=== PATIENT | female | born 1965 | race Caucasian/White ===

== ENCOUNTER → 2017-12-12 | Outpatient (CLI) | payer OTHER ==
--- NOTE | 2017-12-12 12:42 | DIAGNOSTIC IMAGING REPORT ---
L HAND MIN 3 VIEWS ROUTINE CLINICAL HISTORY: Left hand pain COMPARISON: None. DISCUSSION: No acute fractures or dislocations are visualized. There are mild osteoarthritic changes present at the level of the first carpometacarpal joint and navicular trapezium articulation. There is pronounced soft tissue swelling involving the proximal to mid aspect of the index finger. IMPRESSION: 1. Unexplained pronounced soft tissue swelling involving the index finger 2. Mild osteoarthritic change. No evidence of erosive disease Electronically signed by: Sandip Matthews M.D. 12/12/2017 12:41 PM Dictated Date/Time: 12/12/2017 12:40 PM
== END | disposition home or self-care (01) ==
LOC: C.RADBC 12:01
PROVIDERS: ATTEND Family Medicine
DX: M25.542 Pain in joints of left hand (principal)

== ENCOUNTER → 2018-01-24 | Outpatient (CLI) | payer OTHER ==
[~2018-01-24] MED LIST: DICL1GEL12 TD; FENO48TA9 PO; GABA-113 PO; LEVO100T PO; LISI20TA3 PO; LPT/40 PO; METO50TA16 PO; PRED20TA PO; TRAM-10 PO
--- NOTE | 2018-01-24 12:54 | DIAGNOSTIC IMAGING REPORT ---
RENAL ULTRASOUND CLINICAL HISTORY: ABNORMAL KIDNEY FUNCTION STUDIES COMPARISON STUDY: None. TECHNIQUE: Sonography of the kidneys and the urinary bladder was performed. FINDINGS: The right kidney measures 9.9 x 3.9 x 4.5 cm and the left kidney measures 10.3 x 5.9 x 4.7 cm. There is no hydronephrosis. No calculi or masses are identified by sonography. Renal echogenicity, size and cortical thickness are within normal limits. Bladder is suboptimally assessed given underdistention. The left ureteral jet was not identified. IMPRESSION: No hydronephrosis. No significant sonographic abnormality of the kidneys. Electronically signed by: Scott Teague M.D. 01/24/2018 12:53 PM Dictated Date/Time: 01/24/2018 12:52 PM
== END | disposition home or self-care (01) ==
LOC: C.ULTR 12:06
PROVIDERS: ATTEND Family Medicine
DX: R94.4 Abnormal results of kidney function studies (principal)

== ENCOUNTER 2018-01-25 16:14 | Emergency (ER) | payer OTHER ==
[~2018-01-25] VITALS: Ht 167.6 cm; Wt 78.7 kg
[2018-01-25 16:31] VITALS: TEMP 36.8; Ht 167.6 cm; Wt 78.7 kg
[2018-01-25] MEDS ORDERED: KETOROLAC TROMETHAMINE 30 MG/ML VIAL IV STA (16:42)
[2018-01-25] MEDS ORDERED: SODIUM CHLORIDE 0.9% 1000ML 1,000 ML IV STA (16:42)
[2018-01-25] MEDS ORDERED: DEXAMETHASONE **PF** INJ 10 MG/ML VIAL IV ONE (16:45)
--- NOTE | 2018-01-25 16:46 | EMERGENCY ROOM VISIT NOTE ---
History Report prepared by Cyril: Ana Delgado Under the Supervision of: Dr. Justin Jung M.D. First contact with patient: 16:34 Chief Complaint: HAND PAIN/INJURY Stated Complaint: SWOLLEN LEFT HAND History of Present Illness The patient is a 52 year old female who presents to the Emergency Room with complaints of constant left hand pain beginning 3 days ago. The patient states that her left index finger has been swollen for the last 4 months. She states that she had X-rays done but nothing was found. The patient states that she had pain at her joint but denies any trauma to her hand. She reports that her entire left hand has been swollen starting 3 days ago. The patient reports having fasciitis in her feet and states that her feet and ankles have been swollen for a few years. 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 The patient reports that she thinks she may have neuropathy. The patient denies having fevers, chills, cough, headaches, and diarrhea. Source of History: patient Onset: 3 days ago Position: hand (left) Quality: other (swollen ) Timing: constant Associated Symptoms: No fevers, No chills, No headache, No cough, No diarrhea Review of Systems See HPI for pertinent positives and negatives. A total of ten systems were reviewed and were otherwise negative. Past Medical & Surgical Medical Problems: (1) Fasciitis Family History No pertinent family history Social History Smoking Status: Current Every Day Smoker Marital Status: Current/Historical Medications Scheduled Atorvastatin (Lipitor), 40 MG PO DAILY Diclofenac Sodium (Topical) (Voltaren 1% Top Gel), 2-4 GM TD QID Fenofibrate (Tricor), 48 MG PO DAILY Gabapentin (Neurontin), 300 MG PO BID Levothyroxine Sodium (Synthroid), 100 MCG PO DAILY Lisinopril (Prinivil), 20 MG PO DAILY Metoprolol Tartrate (Lopressor) (Lopressor), 25 MG PO BID Prednisone (Prednisone), 3 TAB PO DAILY Scheduled PRN Tramadol (Ultram), 50 MG PO Q12 PRN for Pain Allergies Coded Allergies: No Known Allergies (Unverified , 01/25/18) Physical Exam Vital Signs Date Time Temp Pulse Resp B/P (MAP) Pulse Ox O2 Delivery O2 Flow Rate FiO2 01/25/18 18:30 67 20 177/113 98 01/25/18 16:31 36.8 88 18 186/95 96 Room Air Physical Exam GENERAL: Awake, alert, well-appearing, in no distress HENT: Normocephalic, atraumatic. Oropharynx unremarkable. EYES: Normal conjunctiva. Sclera non-icteric. NECK: Supple. No nuchal rigidity. FROM. No JVD. RESPIRATORY: Clear to auscultation. CARDIAC: Regular rate, normal rhythm. Extremities warm and well perfused. Pulses equal. ABDOMEN: Soft, non-distended. No tenderness to palpation. No rebound or guarding. No masses. RECTAL: Deferred. MUSCULOSKELETAL: Chest examination reveals no tenderness. The back is symmetrical on inspection without obvious abnormality. There is no CVA tenderness to palpation. No joint edema. UPPER EXTREMITIES: Moderate swelling to the left hand with increased swelling of the second phalanx. Mild warmth and scant erythema. Pain with passive range of motion. Perfusion motor sensory intact. Right hand has scant swelling. No erythema or warmth. LOWER EXTREMITIES: Calves are equal size bilaterally and non-tender. No edema. No discoloration. Mild bilateral plantar swelling and tenderness with scant erythema of the bilateral feet. NEURO: Normal sensorium. No sensory or motor deficits noted. SKIN: No rash or jaundice noted. Medical Decision & Procedures ER Provider Diagnostic Interpretation: Radiology results as stated below per my review and radiologist interpretation: LEFT HAND 3 VIEWS CLINICAL HISTORY: Left hand pain and swelling. FINDINGS: 3 views of the left hand are compared to study dated 12/12/2017. The skeletal structures are well mineralized. No fracture is identified. No bony erosion or periostitis is seen. Minimal arthritic change is seen at the first carpometacarpal joint. The joint spaces of the hand are otherwise preserved. Dorsal soft tissue edema is noted. Soft tissue edema is also noted in fingers, most pronounced in the second digit. No radiodense foreign body is identified. IMPRESSION: Soft tissue edema with no acute bony abnormality identified. Soft tissue edema has increased from 12/12/2017. Electronically signed by: Jaya Holden M.D. 01/25/2018 5:22 PM Dictated Date/Time: 01/25/2018 5:20 PM Laboratory Results 01/25/18 17:00 Red Blood Count 3.67, Mean Corpuscular Volume 92.9, Mean Corpuscular Hemoglobin 32.4, Mean Corpuscular Hemoglobin Concent 34.9, Mean Platelet Volume 9.4, Neutrophils (%) (Auto) 75.0, Lymphocytes (%) (Auto) 16.2, Monocytes (%) (Auto) 6.8, Eosinophils (%) (Auto) 1.3, Basophils (%) (Auto) 0.4, Neutrophils # (Auto) 6.92, Lymphocytes # (Auto) 1.50, Monocytes # (Auto) 0.63, Eosinophils # (Auto) 0.12, Basophils # (Auto) 0.04 01/25/18 17:00 Test 01/25/18 17:00 01/25/18 18:15 White Blood Count 9.24 K/uL (4.8-10.8) Red Blood Count 3.67 M/uL (4.2-5.4) Hemoglobin 11.9 g/dL (12.0-16.0) Hematocrit 34.1 % (37-47) Mean Corpuscular Volume 92.9 fL (80-100) Mean Corpuscular Hemoglobin 32.4 pg (25-34) Mean Corpuscular Hemoglobin Concent 34.9 g/dl (32-36) Platelet Count 216 K/uL (130-400) Mean Platelet Volume 9.4 fL (7.4-10.4) Neutrophils (%) (Auto) 75.0 % Lymphocytes (%) (Auto) 16.2 % Monocytes (%) (Auto) 6.8 % Eosinophils (%) (Auto) 1.3 % Basophils (%) (Auto) 0.4 % Neutrophils # (Auto) 6.92 K/uL (1.4-6.5) Lymphocytes # (Auto) 1.50 K/uL (1.2-3.4) Monocytes # (Auto) 0.63 K/uL (0.11-0.59) Eosinophils # (Auto) 0.12 K/uL (0-0.5) Basophils # (Auto) 0.04 K/uL (0-0.2) RDW Standard Deviation 44.0 fL (36.4-46.3) RDW Coefficient of Variation 13.1 % (11.5-14.5) Immature Granulocyte % (Auto) 0.3 % Immature Granulocyte # (Auto) 0.03 K/uL (0.00-0.02) Erythrocyte Sedimentation Rate 36 mm/hr (0-21) Prothrombin Time 10.4 SECONDS (9.0-12.0) Prothromb Time International Ratio 1.0 (0.9-1.1) Anion Gap 8.0 mmol/L (3-11) Est Creatinine Clear Calc Drug Dose 51.6 ml/min Estimated GFR () 52.9 Estimated GFR (Non- 45.6 BUN/Creatinine Ratio 16.3 (10-20) Calcium Level 8.9 mg/dl (8.5-10.1) Total Bilirubin 0.4 mg/dl (0.2-1) Direct Bilirubin 0.1 mg/dl (0-0.2) Aspartate Amino Transf (AST/SGOT) 34 U/L (15-37) Alanine Aminotransferase (ALT/SGPT) 29 U/L (12-78) Alkaline Phosphatase 110 U/L (45-117) Total Creatine Kinase 102 U/L (26-192) C-Reactive Protein 5.27 mg/dl (0-0.29) Total Protein 8.5 gm/dl (6.4-8.2) Albumin 4.1 gm/dl (3.4-5.0) Lipase 200 U/L (73-393) Urine Color YELLOW Urine Appearance CLEAR (CLEAR) Urine pH 5.0 (4.5-7.5) Urine Specific Rembrandt 1.028 (1.000-1.030) Urine Protein NEG (NEG) Urine Glucose (UA) NEG (NEG) Urine Ketones NEG (NEG) Urine Occult Blood NEG (NEG) Urine Nitrite NEG (NEG) Urine Bilirubin NEG (NEG) Urine Urobilinogen NEG (NEG) Urine Leukocyte Esterase NEG (NEG) Laboratory results reviewed by me Medications Administered Medications (Trade) Dose Ordered Sig/Olivia Route Start Time Stop Time Status Last Admin Dose Admin Sodium Chloride 1,000 ml @ 999 mls/hr Q1H1M STAT IV 01/25/18 16:42 01/25/18 17:42 DC 01/25/18 17:10 999 MLS/HR Ketorolac Tromethamine (Toradol Inj) 15 mg NOW STAT IV 01/25/18 16:42 01/25/18 16:48 DC 01/25/18 17:11 15 MG Dexamethasone Sodium Phosphate (Dexamethasone Inj Pf) 10 mg NOW ONCE IV 01/25/18 16:45 01/25/18 16:48 DC 01/25/18 17:11 10 MG Potassium Chloride (Klor-Con M10) 40 meq NOW STAT PO 01/25/18 17:59 01/25/18 18:00 DC 01/25/18 18:17 40 MEQ ED Course 1636: The patient was evaluated in room C1B. A complete history and physical exam was performed. 1730: I reevaluated the patient and she is doing well. Discussed results and discharge instructions: She verbalized understanding and agreement. The patient is ready for discharge. Medical Decision I reviewed the patient's past medical history, medications, and the nursing notes as described above. The patient's presentation and history were concerning for inflammatory arthritis, osteoarthritis, psoriatic arthritis, fracture, and soft tissue injury. The patient is a 52-year-old woman with a past medical history of chronic plantar fasciitis followed by podiatry who presents emergency department with left hand swelling over the past several days which occurs in the setting of left second phalanx swelling that has been ongoing for several months with rheumatology referral pending per hpi. Of note, patient denies any infectious symptoms such as fevers chills cough congestion, nausea vomiting. Rather the patient is relatively well-appearing no acute distress, afebrile stable vital signs. Left hand has moderate edema that is increased along the second phalanx. She has pain with passive range of motion. There is mild erythema/ flushing with mild warmth over the hand. Distal PMS intact. No, the patient does have scant swelling to the right hand as well addition to bilateral plantar swelling. WBC wnl. ESR 35, CRP 5. Mild renal insufficiency, which the patient reports is being evaluated by her doctor. Of note, this is why she was taken off of Meloxicam. Plain films demonstrate soft tissue swelling but otherwise no osseous involvement. Given the fact that the patient swelling has been ongoing for the past several months in the setting of being afebrile without any other infectious symptoms this is unlikely to be infectious. Moreover given her long-standing symptoms of feet swelling and plantar fasciitis as well, this raises suspicion for rheumatologic process. Will treat with steroid course, compression and elevation. Patient's PCP through [facility] has already put in a request for a rheumatology follow-up and she is waiting for callback. Patient instructed to call the rheumatology office tomorrow if she does not hear from them, to attempt to arrange an appointment as soon as possible. Findings and plan for follow-up reviewed with patient. Patient agreeable and d/c'd per discharge instructions. Medication Reconcilliation Current Medication List: was personally reviewed by me Blood Pressure Screening Patient's blood pressure: Elevated blood pressure Blood pressure disposition: Elevated BP felt to be situational Impression Primary Impression: Dactylitis Scribe Attestation The scribe's documentation has been prepared under my direction and personally reviewed by me in its entirety. I confirm that the note above accurately reflects all work, treatment, procedures, and medical decision making performed by me. Departure Information Dispostion Home / Self-Care Prescriptions Prednisone (Prednisone) 20 Mg Tab 3 TAB PO DAILY for 4 Days, #12 TAB FOR 4 DAYS Prov: Justin Jung M.D. 01/25/18 Referrals Nola Henriquez D.O. (PCP) Forms HOME CARE DOCUMENTATION FORM, IMPORTANT VISIT INFORMATION Patient Instructions Arthritis, ED Arthritis Rheumatoid, [facility], Psoriatic Arthritis Additional Instructions Please follow up with rheumatology in the next week for re-evaluation. You should call your rheumatologists office to try to obtain a prompt appointment. You should also follow up with your primary doctor within a week to repeat your kidney function tests. Your symptoms are most likely due to an inflammatory process that will need further identification for the cause. You were also found to have mild dehydration. Otherwise, your exam, lab results, and xray did not show signs of an emergent condition at this time. Acetaminophen for pain as needed. Prednisone as directed. Drink plenty of fluids to ensure hydration. Return to the emergency department for worsening symptoms as described in the accompanying instructions.
[2018-01-25 17:15] LABS: BASO % 0.4 %; BASO ABS # 0.04 K/uL (0-0.2); EOS % 1.3 %; EOS ABS # 0.12 K/uL (0-0.5); HEMATOCRIT 34.1 % (37-47); HEMOGLOBIN 11.9 g/dL (12.0-16.0); IG# 0.03 K/uL (0.00-0.02); LYMPH % 16.2 %; MEAN CELL VOLUME 92.9 fL (80-100); MEAN CORPUSCULAR HEMOGLOBIN 32.4 pg (25-34); MEAN CORPUSCULAR HGB CONC 34.9 g/dl (32-36); MEAN PLATELET VOLUME 9.4 fL (7.4-10.4); MONO % 6.8 %; MONO ABS # 0.63 K/uL (0.11-0.59); NEUT ABS # 6.92 K/uL (1.4-6.5); PLATELET COUNT 216 K/uL (130-400); RED CELL DISTRIBUTION WIDTH CV 13.1 % (11.5-14.5); WHITE BLOOD COUNT 9.24 K/uL (4.8-10.8)
--- NOTE | 2018-01-25 17:23 | DIAGNOSTIC IMAGING REPORT ---
LEFT HAND 3 VIEWS CLINICAL HISTORY: Left hand pain and swelling. FINDINGS: 3 views of the left hand are compared to study dated 12/12/2017. The skeletal structures are well mineralized. No fracture is identified. No bony erosion or periostitis is seen. Minimal arthritic change is seen at the first carpometacarpal joint. The joint spaces of the hand are otherwise preserved. Dorsal soft tissue edema is noted. Soft tissue edema is also noted in fingers, most pronounced in the second digit. No radiodense foreign body is identified. IMPRESSION: Soft tissue edema with no acute bony abnormality identified. Soft tissue edema has increased from 12/12/2017. Electronically signed by: Jaya Holden M.D. 01/25/2018 5:22 PM Dictated Date/Time: 01/25/2018 5:20 PM
[2018-01-25] MEDS ORDERED: GABA-113 PO (17:35)
[2018-01-25] MEDS ORDERED: LEVO100T PO (17:35)
[2018-01-25] MEDS ORDERED: FENO48TA9 PO (17:35)
[2018-01-25] MEDS ORDERED: DICL1GEL12 TD (17:35)
[2018-01-25] MEDS ORDERED: TRAM-10 PO (17:35)
[2018-01-25] MEDS ORDERED: METO50TA16 PO (17:35)
[2018-01-25] MEDS ORDERED: LISI20TA3 PO (17:35)
[2018-01-25] MEDS ORDERED: LPT/40 PO (17:35)
[2018-01-25 17:54] LABS: ALBUMIN 4.1 gm/dl (3.4-5.0); CALCIUM 8.9 mg/dl (8.5-10.1); CREATININE 1.32 mg/dl (0.60-1.20); POTASSIUM 3.1 mmol/L (3.5-5.1)
[2018-01-25 17:58] LABS: TOTAL PROTEIN 8.5 gm/dl (6.4-8.2)
[2018-01-25] MEDS ORDERED: POTASSIUM CHLORIDE 10 MEQ TABCR PO STA (17:59)
[2018-01-25] MEDS ORDERED: PRED20TA PO (18:03)
[2018-01-25 18:30] VITALS: BP 177/113; PULSE 67; O2SAT 98
== END 2018-01-25 18:30 | disposition home or self-care (01) ==
LOC: C.EDB 16:15 → C.EDC 18:30
DX: L08.9 Local infection of the skin and subcutaneous tissue, unspecified (principal); M72.2 Plantar fascial fibromatosis; F17.200 Nicotine dependence, unspecified, uncomplicated

== ENCOUNTER → 2018-01-27 | Outpatient (CLI) | payer OTHER ==
[2018-01-27 17:11] LABS: URIC ACID 9.3 mg/dl (2.6-7.2)
== END | disposition home or self-care (01) ==
LOC: C.LAB1850 14:51
PROVIDERS: ATTEND Internal Medicine Rheumatology
DX: M19.90 Unspecified osteoarthritis, unspecified site (principal); M79.643 Pain in unspecified hand; R70.0 Elevated erythrocyte sedimentation rate; M79.646 Pain in unspecified finger(s)

== ENCOUNTER → 2018-01-27 | Outpatient (CLI) | payer OTHER | END | disposition home or self-care (01) | LOC: C.LABSPEC 15:49 | PROVIDERS: ATTEND Internal Medicine Rheumatology | DX: M19.90 Unspecified osteoarthritis, unspecified site (principal); R70.0 Elevated erythrocyte sedimentation rate; M79.646 Pain in unspecified finger(s) ==

== ENCOUNTER → 2018-02-07 | Outpatient (CLI) | payer OTHER ==
[~2018-02-07] MED LIST changes: -PRED20TA PO
[2018-02-07 14:35] LABS: BASO % 0.2 %; BASO ABS # 0.02 K/uL (0-0.2); EOS % 0.4 %; EOS ABS # 0.04 K/uL (0-0.5); HEMATOCRIT 32.9 % (37-47); HEMOGLOBIN 11.2 g/dL (12.0-16.0); IG# 0.02 K/uL (0.00-0.02); LYMPH % 7.9 %; MEAN CELL VOLUME 95.9 fL (80-100); MEAN CORPUSCULAR HEMOGLOBIN 32.7 pg (25-34); MEAN PLATELET VOLUME 9.4 fL (7.4-10.4); MONO % 8.8 %; NEUT % 82.5 %; NEUT ABS # 8.39 K/uL (1.4-6.5); PLATELET COUNT 225 K/uL (130-400); RED CELL DISTRIBUTION WIDTH CV 13.8 % (11.5-14.5); RED CELL DISTRIBUTION WIDTH SD 47.7 fL (36.4-46.3); WHITE BLOOD COUNT 10.17 K/uL (4.8-10.8)
[2018-02-07 15:08] LABS: ALBUMIN 3.7 gm/dl (3.4-5.0); ALT/SGPT 24 U/L (12-78); AST/SGOT 28 U/L (15-37); CREATININE 1.31 mg/dl (0.60-1.20)
[2018-02-07 15:10] LABS: ALKALINE PHOSPHATASE 80 U/L (45-117); TOTAL PROTEIN 7.6 gm/dl (6.4-8.2)
[2018-02-13 06:32] LABS: PARVOVIRUS IgM INDEX 0.2 (<0.9)
== END | disposition home or self-care (01) ==
LOC: C.LAB1850 12:03
PROVIDERS: ATTEND Internal Medicine Rheumatology
DX: L03.90 Cellulitis, unspecified (principal); E79.0 Hyperuricemia without signs of inflammatory arthritis and tophaceous disease

== ENCOUNTER 2024-11-30 16:02 | Observation (INO) ==
--- NOTE | 2024-11-30 17:54 | CT Scan Report ---
INDICATION: Low back pain with radiculopathy. COMPARISON: Correlation with MRI from 10/08/2024. TECHNIQUE: Axial CT images of the lumbar spine were obtained without IV contrast administration. Coronal and sagittal reformations were reviewed. FINDINGS: Lumbar vertebral body heights and alignment are maintained. No acute fracture or traumatic subluxation. Multilevel disc space narrowing and facet arthropathy most pronounced at lower lumbar levels. Multilevel degenerative changes essentially unchanged from prior MRI. Soft tissues appear unremarkable. IMPRESSION: No acute fracture. Multilevel disc space narrowing and facet arthropathy most pronounced at lower lumbar levels. Multilevel degenerative changes essentially unchanged from prior MRI. Electronically signed by Jerry Morgan 11-30-2024 5:54 PM
[2024-11-30] MEDS: oxyCODONE HCL IR 5 MG TAB (IMMEDIATE RELEASE) PO STA (18:27)
[2024-11-30] MEDS: MoRPHine SULFATE 4 MG/ML 1 ML CARP\\VIAL IV STA (20:05)
[2024-11-30] MEDS: ONDANSETRON INJ 2 MG/ML 2 ML VIAL IV STA (20:05)
--- NOTE | 2024-11-30 20:22 | Emergency Department Note ---
ED Provider Note History of Present Illness Chief Complaint: Hip Pain Stated Complaint: BACK, HIP PAIN Time Seen by Provider: 11/30/24 17:18 Source: patient and family Mode of arrival: EMS Limitations: no limitations Patient is a 58-year-old female who presents to the emergency department with complaints of severe back pain. Patient states that she has a history of back issues and has been following with her primary care physician and has an appointment with orthopedic spine at [place] in February but notes that over the last 2 days her pain has been significantly worse and is radiating down in her right hip and right leg. Patient denies any numbness or tingling and denies any loss of bladder or bowel control. Home Medications Medication Instructions Recorded Confirmed Type atorvastatin 40 mg tablet 40 mg PO QAM 07/13/19 04/25/24 History bupropion HCl 150 mg 24 hr tablet, 150 mg PO BID 07/13/19 04/25/24 History extended release (Wellbutrin XL) duloxetine 60 mg capsule,delayed 60 mg PO QAM #30 caps 07/13/19 04/25/24 History release fenofibrate nanocrystallized 48 mg 48 mg PO QAM 07/13/19 04/25/24 History tablet acetaminophen 500 mg tablet 1,000 mg PO Q6H PRN Pain 12/24/19 04/25/24 History (Tylenol Extra Strength) amlodipine 10 mg tablet 10 mg PO DAILY 06/26/22 04/25/24 History famotidine 40 mg tablet 40 mg PO DAILY 06/26/22 04/25/24 History levothyroxine 125 mcg tablet 125 mcg PO DAILY 06/26/22 04/25/24 History (Euthyrox) Allergies Allergy/AdvReac Type Severity Reaction Status Date / Time No Known Allergies Allergy Verified 06/26/22 19:32 Past Med/Surg History Problem List (Updated 11/30/24 @ 23:06 by JUANITA Brink) Acute hip pain (Acute) Intractable back pain (Acute) Charcot's joint of foot (Chronic) Chronic kidney disease (Chronic) Hypothyroidism (Chronic) High cholesterol (Chronic) High blood pressure (Chronic) Anxiety and depression (Chronic) Medical History Deep vein thrombosis, upper right extremity PICC line History of Clostridium difficile infection HX CDIFF , 1 MON AGO - RESOLVED Low blood potassium Low magnesium level Surgical History History of foot surgery LEFT History of laparoscopy Family History Other No significant family history Social History Smoking Status: Former smoker Tobacco Type: Cigarettes Cigarettes Per Day: .5 PPD / ADVISED NPO; Hx Alcohol Use: Yes Alcohol type: beer, wine and hard liquor Hx Substance Use: No Preferred Language: Kittitian Communication Ability: Effective Senior Coldfusion Developer Required: No Beliefs That Will Affect Care: None Current Living Situation: Spouse and Other Current Living Situation Comment: AND DAUGHTER Feels Safe at Home: Yes Physical Exam Vital Signs Vital Signs - 24 hr 11/30/24 16:14 11/30/24 17:08 11/30/24 18:27 Temperature 36.5 C Temperature Source Oral Pulse Rate 78 Pulse Rate [Right Finger] 75 76 Pulse Rhythm Regular Pulse Rhythm [Right Finger] Pulse Strength Normal Pulse Strength [Right Finger] Respiratory Rate 20 16 20 Respiratory Effort / Characteristics Non-Labored Spontaneous Respiratory Depth Normal Normal Respiratory Pattern Blood Pressure 186/93 H Blood Pressure [Right Arm] 195/92 H 189/99 H Blood Pressure Mean 124 Blood Pressure Mean [Right Arm] 126 129 Blood Pressure Position Sitting Blood Pressure Position [Right Arm] Pulse Oximetry 97 98 96 Oxygen Delivery Method Room Air Room Air Sepsis Recent Fever Within 48 Hours No Sepsis New/Unexplained Change in Mental Status No Sepsis Action Taken by Nursing No Action Required 11/30/24 20:06 11/30/24 21:00 Temperature Temperature Source Pulse Rate Pulse Rate [Right Finger] 83 78 Pulse Rhythm Pulse Rhythm [Right Finger] Regular Regular Pulse Strength Pulse Strength [Right Finger] Normal Normal Respiratory Rate 20 17 Respiratory Effort / Characteristics Non-Labored Spontaneous Non-Labored Spontaneous Respiratory Depth Normal Normal Respiratory Pattern Regular Regular Blood Pressure Blood Pressure [Right Arm] 165/88 H 150/96 H Blood Pressure Mean Blood Pressure Mean [Right Arm] 113 114 Blood Pressure Position Blood Pressure Position [Right Arm] Lying Lying Pulse Oximetry 96 95 Oxygen Delivery Method Room Air Room Air Sepsis Recent Fever Within 48 Hours Sepsis New/Unexplained Change in Mental Status Sepsis Action Taken by Nursing VITAL SIGNS - Vital signs and nursing notes were reviewed. GENERAL -58-year-old female appearing her stated age and in noticeable discomfort throughout the exam. Patient's daughter is at bedside. NECK - FROM of the cervical spine. ABDOMEN - Abdominal contour without pulsations or visible masses. BS normoactive all four quadrants. MUSCULOSKELETAL - ROM of the lumbar spine region was limited due to discomfort. No step-off deformities were palpated down the cervical, thoracic, or lumbar spines. Increased tenderness to Palpation experienced at the level of the lumbar spine and bilateral paraspinal muscle distribution. Reproducible tenderness to palpation across the iliac spine. Patient notes that her pain radiates down into her right hip and right leg. Denies numbness or tingling. NEUROLOGIC - REFLEXES: +3/4 patellar reflexes B/L, +3/4 Achilles reflexes B/L. SENSORY: Spinothalamic tract was found to be intact with ability to discriminate sharp versus dull sensation at the level of hip joint down do the great toe. No sensory defects of the dorsal column were appreciated utilizing light touch for evaluation. CEREBELLAR: Pt able to perform rapid alternating movements of the feet. EXTREMITIES - Range of Motion - No tremors, ticks, or fasciculations of the lower extremities noticed during inspection. Pt able to perform straight leg raises B/L with minimal increase in pain. Pt had + 4 strength appreciated in the lower extremities against examiner's resistance. Patient notes that she feels weaker in her bilateral lower extremities because of her back pain. VASCULAR - Capillary refill of the great toe was brisk. No mottling or blanching of the extremities present. +3/5 dorsalis pedis pulses palpated bilaterally. Course Administered Medications Discontinued Medications Morphine Sulfate (Morphine Sulfate 4 Mg/Ml 1 Ml Carp\Vial) 4 mg IV NOW STA Stop: 11/30/24 19:33 Last Admin: 11/30/24 20:05 Dose: 4 mg Documented By: AFTAB Ondansetron HCl (Ondansetron Inj 2 Mg/Ml 2 Ml Vial) 4 mg IV NOW STA Stop: 11/30/24 19:33 Last Admin: 11/30/24 20:05 Dose: 4 mg Documented By: AFTAB Oxycodone HCl (Oxycodone Hcl Ir 5 Mg Tab (Immediate Release)) 5 mg PO NOW STA Stop: 11/30/24 18:21 Last Admin: 11/30/24 18:27 Dose: 5 mg Documented By: [facility] Medical Decision Making Differential Diagnosis In the evaluation and treatment of this patient the following differential diagnoses were considered: Cauda equina syndrome, discitis, HNP, sciatica, epidural abscess, psoas abscess, musculoskeletal strain, lumbar fracture, lumbar dislocation, lumbar subluxation, spondylolisthesis, spondylosis, or compression fracture. Medical Records Attestation: I reviewed the patient's medical records. Home Medications was personally reviewed by or Laboratory Data Attestation: I reviewed the patient's lab results. 11/30/24 20:30 11/30/24 20:30 Lab Results 11/30/24 Range/Units 20:30 WBC 8.80 (4.8-10.8) K/ul RBC 3.72 L (4.20-5.40) M/uL Hgb 11.9 L (12.0-16.0) g/dl Hct 34.0 L (37.0-47.0) % MCV 91.4 (80.0-100.0) fL MCH 32.0 (25.0-34.0) pg MCHC 35.0 (32.0-36.0) g/dL RDW Std Deviation 43.0 (36.4-46.3) fL RDW Coeff of Mario 13.0 (11.5-14.5) % Plt Count 280 (130-400) K/uL MPV 11.0 (9.4-12.4) fL Immature Gran % (Auto) 2.0 % Neut % (Auto) 78.0 % Lymph % (Auto) 12.3 % [place] % (Auto) 7.4 % Eos % (Auto) 0.2 % Baso % (Auto) 0.1 % Neut # (Auto) 6.86 H (1.40-6.50) K/uL Lymph # (Auto) 1.08 L (1.20-3.40) K/uL [place] # (Auto) 0.65 H (0.11-0.59) K/uL Eos # (Auto) 0.02 (0.00-0.50) K/uL Baso # (Auto) 0.01 (0.00-0.20) K/uL Immature Gran # (Auto) 0.18 (0.01-0.20) K/uL Sodium 139 (136-145) mmol/L Potassium 3.3 L (3.5-5.1) mmol/L Chloride 104 (98-107) mmol/L Carbon Dioxide 22 (21-32) mmol/L Anion Gap 13 H (3-11) BUN 27 H (6-23) mg/dl Creatinine 1.52 H (0.6-1.2) mg/dl Est Cr Clr Drug Dosing 42.1 ml/min eGFR 39.02 BUN/Creatinine Ratio 17.8 (10-20) Glucose 111 H (70-99(Fasting)) mg/dl Calcium 10.2 (8.6-10.3) mg/dl Total Bilirubin 0.5 (0.2-1.0) mg/dl AST 18 (13-39) U/L ALT 13 (7-52) U/L Alkaline Phosphatase 71 (34-104) U/L Total Protein 8.6 H (6.0-8.3) gm/dl Albumin 4.6 (3.4-5.0) gm/dl Globulin 4.0 (2.5-4.0) gm/dl Albumin/Globulin Ratio 1.1 (0.9-2) Imaging Data Radiologist's Impression: Lumbar Spine CT 11/30/24 16:51 INDICATION: Low back pain with radiculopathy. COMPARISON: Correlation with MRI from 10/08/2024. TECHNIQUE: Axial CT images of the lumbar spine were obtained without IV contrast administration. Coronal and sagittal reformations were reviewed. FINDINGS: Lumbar vertebral body heights and alignment are maintained. No acute fracture or traumatic subluxation. Multilevel disc space narrowing and facet arthropathy most pronounced at lower lumbar levels. Multilevel degenerative changes essentially unchanged from prior MRI. Soft tissues appear unremarkable. IMPRESSION: No acute fracture. Multilevel disc space narrowing and facet arthropathy most pronounced at lower lumbar levels. Multilevel degenerative changes essentially unchanged from prior MRI. Electronically signed by Jerry Morgan 11-30-2024 5:54 PM [facility] Narrative Patient is a 58-year-old female who presents to the emergency department with complaints of severe back pain. Patient states that she has a history of back issues and has been following with her primary care physician and has an appointment with orthopedic spine at [place] in February but notes that over the last 2 days her pain has been significantly worse and is radiating down in her right hip and right leg. Patient denies any numbness or tingling and denies any loss of bladder or bowel control. Patient was evaluated by myself and findings were noted in physical exam above. Patient was ordered a CT of her lumbar spine through triage protocols. Patient was also ordered a dose of oxycodone and an x-ray of the right hip and pelvis. Upon reevaluation the patient states that her pain is still significant and she had no relief of pain from the oxycodone. Patient notes that she has been taking gabapentin, baclofen, and Lyrica at home with no relief of her pain. Patient was ordered saline lock, a dose of morphine and Zofran, as well as some lab work. Patient's lab work resulted with a normal white blood cell count of 8.80. Patient had some mild anemia noted that appears to be baseline for the patient. Patient had a hemoglobin of 11.9 and hematocrit of 34.0. Patient had a creatinine level of 1.52, otherwise no significant electrolyte imbalance was noted. Patient CT was interpreted by radiology to show no acute fracture. There is multilevel disc space narrowing and facet arthropathy most pronounced at the lower lumbar levels. Patient had a previous MRI done back in October and there were no significant changes from her previous MRI. Upon reevaluation the patient notes that the morphine did help with her pain some but she is still having significant amount of pain. Patient was writhing in bed and crying. Patient states that she does not feel that she can go home to take care of herself because her pain has increased so significantly over the last couple days. Patient states that she lives at home alone and is able to call her children for help but does not feel that she is appropriate to go home. I discussed this case with Dr. Chaves who was [facility] I gave her a full report on the patient's chief complaint, results of her lab work and imaging, and the patient's current status. Dr. Chaves agreed to accept the patient for admission under her service for intractable pain. Patient was admitted to the hospital in good condition. Please refer to [facility] documentation for further evaluation and management of this patient. Impression Intractable back pain, Acute hip pain Discharge Plan Visit Data Chief Complaint: Hip Pain Stated Complaint: BACK, HIP PAIN ED Provider: Jaya Lee ED Midlevel Provider: Jina Hendricks Discharge Problem: Intractable back pain, Acute hip pain Patient Disposition: Admitted As Inpatient Discharge Instructions Interventions: ED Discharge Assessment Last Done: 11/30/24 21:53 Discharge Problem: Acute hip pain Qualifiers: Laterality: right Qualified Code(s): M25.551 - Pain in right hip
[2024-11-30 21:05] LABS: Albumin Globulin Ratio 1.1 (0.9-2); Albumin Level 4.6 gm/dl (3.4-5.0); BUN Creatinine Ratio 17.8 (10-20); Bilirubin,Total 0.5 mg/dl (0.2-1.0); Calcium 10.2 mg/dl (8.6-10.3); Creatinine Clr Calc Pharmacy 42.1 ml/min; Potassium 3.3 mmol/L (3.5-5.1); Total Protein 8.6 gm/dl (6.0-8.3)
--- NOTE | 2024-11-30 21:13 | History & Physical Report ---
Date of Service November 30, 2024 Assessment & Plan (1) Acute hip pain: Plan: X-ray imaging suggestive of right hip dislocation. Patient is NV intact. No recent falls or trauma. Most likely cause of patient's severe acute pain -Check CT -Pain control -Ortho consultation (2) Intractable back pain: Plan: -Tylenol 1gm po TID scheduled -Heat -Oxycodone 5mg po q 4 hours PRN -Morphine 4mg IV q 3 hours PRN severe pain -Flexeril 5mg po TID PRN -Gabapentin 600 mg po BID -Lyrica 75mg po BID Plan Chronic Medical Issues: Hypertension -Continue Amlodipine 10mg po daily Hyperlipidemia -Continue Atorvastatin 40mg po daily -Continue Fenofibrate Anxiety -Welbutrin 150mg po BID Hypothyroidism -Continue Synthroid 137mcg po daily F/E/N - NSS at 125mL/hr, electrolytes WNL, NPO for now for possible reduction of hip dislocation Ppx - SCDs Code - Full Dispo - Admit to medical History of Present Illness Chief Complaint: back pain Primary Care Provider: Madhavi Garnett MD Miranda Patten is a 58yo female presenting with acute on chronic low back pain with right sided radicular symptoms. Patient reports she has been unable to control her pain at home and has not been able to walk. She has chronic back pain. Is being considered for surgical intervention. She recently [place] [facility] to obtain [place]). Patient has been having worsening right sided back pain for the last 2 weeks with radiation into the buttock and down posterior leg. She has not been able to ambulate at home due to discomfort. She has been taking Tylenol, Ibuprofen and Gabapentin with no relief. She has been experiencing spasms as well in her upper leg. Denies muscle weakness or numbness. No falls or trauma. No report of fever, chills, chest pain, cough, SOB, bowel or bladder issues. No additional complaints at this time. ER Course: Oxycodone Morphine Zofran Senna/Docusate Allergies Allergy/AdvReac Type Severity Reaction Status Date / Time No Known Allergies Allergy Verified 06/26/22 19:32 Home Medications Medication Instructions Recorded Confirmed Type atorvastatin 40 mg tablet 40 mg PO QAM 07/13/19 12/01/24 History bupropion HCl 150 mg 24 hr tablet, 150 mg PO BID 07/13/19 12/01/24 History extended release (Wellbutrin XL) duloxetine 60 mg capsule,delayed 60 mg PO QAM #30 caps 07/13/19 12/01/24 History release fenofibrate nanocrystallized 48 mg 48 mg PO QAM 07/13/19 12/01/24 History tablet acetaminophen 500 mg tablet 1,000 mg PO Q6H PRN Pain 12/24/19 12/01/24 History (Tylenol Extra Strength) amlodipine 10 mg tablet 10 mg PO DAILY 06/26/22 12/01/24 History famotidine 40 mg tablet 40 mg PO DAILY 06/26/22 04/25/24 History levothyroxine 125 mcg tablet 137 mcg PO DAILY 06/26/22 12/01/24 History (Euthyrox) baclofen 5 mg tablet 10 mg PO BID PRN Pain 12/01/24 12/01/24 History baclofen 5 mg tablet mg 12/01/24 History gabapentin 600 mg tablet 600 mg PO BID 12/01/24 12/01/24 History potassium chloride 20 mEq 20 meq PO DAILY 12/01/24 12/01/24 History tablet,extended release(part/cryst) pregabalin 75 mg capsule 75 mg PO BID 12/01/24 12/01/24 History upadacitinib 15 mg tablet,extended 15 mg PO 12/01/24 History release 24 hr (Rinvoq) Past Med/Surg History Problem List Acute hip pain (Acute) Intractable back pain (Acute) Charcot's joint of foot (Chronic) Chronic kidney disease (Chronic) Hypothyroidism (Chronic) High cholesterol (Chronic) High blood pressure (Chronic) Anxiety and depression (Chronic) Medical History Deep vein thrombosis, upper right extremity PICC line History of Clostridium difficile infection HX CDIFF , 1 MON AGO - RESOLVED Low blood potassium Low magnesium level Surgical History History of foot surgery LEFT History of laparoscopy Family History Other No significant family history Social History (Reviewed 12/01/24 @ 01:11 by JORGE A Hernandez Smoking Status: Former smoker Tobacco Type: Cigarettes Cigarettes Per Day: .5 PPD / ADVISED NPO; Hx Alcohol Use: Yes Alcohol type: beer, wine and hard liquor Hx Substance Use: No Preferred Language: Malagasy Communication Ability: Effective Charging Car Operator Required: No Beliefs That Will Affect Care: None Current Living Situation: Spouse and Other Current Living Situation Comment: AND DAUGHTER Feels Safe at Home: Yes Review of Systems Review of Systems: All systems reviewed & are unremarkable except as noted in HPI & below Physical Exam Physical Exam: General: patient resting comfortably, NAD, non-toxic in appearance, AA&O x 4 Skin: warm, dry, intact, no rashes or lesions HEENT: NC/AT, PERRL, EOMI, anicteric sclera, conjunctiva without injection, external ear normal to inspection and nontender, nares patent, moist mucus membranes, dentition intact, no oropharyngeal lesions, neck supple, trachea midline, no LAD, no thyromegaly, no JVD Heart: +S1/S2, regular, no m/r/g Lungs: equal air entry bilaterally, no rales/rhonchi/wheezes Abd: +BS, soft, NT/ND, no masses/organomegaly/ascites Ext: warm, 2+ pulses in UE/LE bilaterally, no clubbing/cyanosis or edema Pain in the right buttock, some paraspinal muscular tenderness, + straight leg raise Neuro: nonfocal, patient AA&O x 4, speech intact, no facial droop, moving all extremities on command with equal strength 5/5 Results & Data Results & Data Vital Signs (Past 12 Hours) Vital Signs Temp Pulse Pulse Resp BP BP Pulse Ox 11/30/24 21:00 78 17 150/96 H 95 11/30/24 20:06 83 20 165/88 H 96 11/30/24 18:27 76 20 189/99 H 96 11/30/24 17:08 75 16 195/92 H 98 11/30/24 16:14 36.5 C 78 20 186/93 H 97 O2 Del Method 11/30/24 21:00 Room Air 11/30/24 20:06 Room Air 11/30/24 18:27 11/30/24 17:08 Room Air 11/30/24 16:14 Room Air Laboratory Results Laboratory Results WBC 8.80 K/ul (4.8-10.8) 11/30/24 20: RBC 3.72 M/uL (4.20-5.40) L 11/30/24 20: Hgb 11.9 g/dl (12.0-16.0) L 11/30/24 20:30 Hct 34.0 % (37.0-47.0) L 11/30/24 20: MCV 91.4 fL (80.0-100.0) 11/30/24 20: MCH 32.0 pg (25.0-34.0) 11/30/24 20: MCHC 35.0 g/dL (32.0-36.0) 11/30/24: RDW Std Deviation 43.0 fL (36.4-46.3) 11/30/24 RDW Coeff of Mario 13.0 % (11.5-14.5) 11/30/24: Plt Count 280 K/uL (130-400) 11/30/24: MPV 11.0 fL (9.4-12.4) 11/30/24 20: Immature Gran % (Auto) 2.0 % 11/30/24 20: Neut % (Auto) 78.0 % 11/30/24 20: Lymph % (Auto) 12.3 % 11/30/24 20: [place] % (Auto) 7.4 % 11/30/24 20: Eos % (Auto) 0.2 % 11/30/24 20: Baso % (Auto) 0.1 % 11/30/24 20:30 Neut # (Auto) 6.86 K/uL (1.40-6.50) H 11/30/24 20:30 Lymph # (Auto) 1.08 K/uL (1.20-3.40) L 11/30/24 20: [place] # (Auto) 0.65 K/uL (0.11-0.59) H 11/30/24 20:30 Eos # (Auto) 0.02 K/uL (0.00-0.50) 11/30/24 20: Baso # (Auto) 0.01 K/uL (0.00-0.20) 11/30/24 20:30 Immature Gran # (Auto) 0.18 K/uL (0.01-0.20) 11/30/24 20:30 Sodium 139 mmol/L (136-145) 11/30/24 20:30 Potassium 3.3 mmol/L (3.5-5.1) L 11/30/24 20:30 Chloride 104 mmol/L (98-107) 11/30/24 20:30 Carbon Dioxide 22 mmol/L (21-32) 11/30/24 20:30 Anion Gap 13 (3-11) H 11/30/24 20:30 BUN 27 mg/dl (6-23) H 11/30/24 20:30 Creatinine 1.52 mg/dl (0.6-1.2) H 11/30/24 20:30 Est Cr Clr Drug Dosing 42.1 ml/min 11/30/24 20:30 eGFR 39.02 11/30/24 20:30 BUN/Creatinine Ratio 17.8 (10-20) 11/30/24 20:30 Glucose 111 mg/dl (70-99(Fasting)) H 11/30/24 20:30 Calcium 10.2 mg/dl (8.6-10.3) 11/30/24 20:30 Total Bilirubin 0.5 mg/dl (0.2-1.0) 11/30/24 20:30 AST 18 U/L (13-39) 11/30/24 20:30 ALT 13 U/L (7-52) 11/30/24 20:30 Alkaline Phosphatase 71 U/L (34-104) 11/30/24 20:30 Total Protein 8.6 gm/dl (6.0-8.3) H 11/30/24 20:30 Albumin 4.6 gm/dl (3.4-5.0) 11/30/24 20:30 Globulin 4.0 gm/dl (2.5-4.0) 11/30/24 20:30 Albumin/Globulin Ratio 1.1 (0.9-2) 11/30/24 20:[address] 11/30/24 16:51 INDICATION: Low back pain with radiculopathy. COMPARISON: Correlation with MRI from 10/08/2024. TECHNIQUE: Axial CT images of the lumbar spine were obtained without IV contrast administration. Coronal and sagittal reformations were reviewed. FINDINGS: Lumbar vertebral body heights and alignment are maintained. No acute fracture or traumatic subluxation. Multilevel disc space narrowing and facet arthropathy most pronounced at lower lumbar levels. Multilevel degenerative changes essentially unchanged from prior MRI. Soft tissues appear unremarkable. IMPRESSION: No acute fracture. Multilevel disc space narrowing and facet arthropathy most pronounced at lower lumbar levels. Multilevel degenerative changes essentially unchanged from prior MRI. Electronically signed by Jerry Morgan 11-30-2024 5:54 PM Hip/Pelvis X-Ray 11/30/24 20:00 Exam(s): XR HIP + PELVIS, 2-3 views EXAM: XR Right Hip With Pelvis When Performed, 2 or 3 Views CLINICAL HISTORY: Reason for exam: right hip, lower back pain. TECHNIQUE: Two or three views of the right hip with pelvis when performed. COMPARISON: No relevant prior studies available. FINDINGS: Bones/joints: The right hip appears to be dislocated. No visualized fracture. Vasculature: Phleboliths within the pelvis. IMPRESSION: The right hip appears to be dislocated. Electronically signed by: Harrison Blank MD 11/30/24 23:31 PM Code Status & VTE Plan VTE Prophylaxis Plan VTE Prophylaxis will be ordered: Yes PG Care Time/CCT Total # of Minutes Spent Total Time Spent with Patient: Total time spent is greater than 50% in coordination of care (as documented) at patient's floor/unit and/or counseling patient: Coding Level of Care Code 77227 INT INP/OBS CARE 3/75MIN Diagnoses Acute hip pain M25.551 Laterality: right Intractable back pain M54.9 (1) Acute hip pain Laterality: right Qualified Code(s): M25.551 - Pain in right hip
[2024-11-30 21:31] LABS: Basophils # (auto) 0.01 K/uL (0.00-0.20); Basophils % (auto) 0.1 %; Eosinophils # (auto) 0.02 K/uL (0.00-0.50); Eosinophils % (auto) 0.2 %; Hemoglobin 11.9 g/dl (12.0-16.0); Immature Granulocytes # (auto) 0.18 K/uL (0.01-0.20); Lymphocytes # (auto) 1.08 K/uL (1.20-3.40); Lymphocytes % (auto) 12.3 %; Mean Corpuscular Volume 91.4 fL (80.0-100.0); Monocytes # (auto) 0.65 K/uL (0.11-0.59); Monocytes % (auto) 7.4 %; Neutrophils # (auto) 6.86 K/uL (1.40-6.50); Platelet Count 280 K/uL (130-400); Red Blood Count 3.72 M/uL (4.20-5.40)
[2024-11-30] MEDS: DOCUSATE SODIUM/SENNA 50/8.6MG TAB PO SCH (22:00)
[2024-11-30] MEDS ORDERED: POLYETHYLENE (MIRALAX) 17 GM PACK PO PRN (22:35)
[2024-11-30] MEDS ORDERED: ONDANSETRON INJ 2 MG/ML 2 ML VIAL IV PRN (22:35)
--- OUTSIDE RECORDS SUMMARY | 2024-11-30 23:11 | External Medical Summary | Summary of Care ---
Author Name Unknown Organization [facility] Address [address] [place] [address] Phone [phone] Care Team Providers Care Saas Architect Name Role Phone Kelly SILVA MD, Lalo Torres Primary Care Provider [phone] Reason for Visit * Reason Onset Date Comments Imaging Records Request 11/05/2024 Encounter Details Date Type Department Care Team (Late st Contact Info) Description 11/05/2024 Telephone Radiology Film File [address] [place] [address] Support, Imaging Radiology [address] [place] [address] Imaging Records Request Allergies No known active allergiesdocumented as of this encounter (statuses as of 11/05/2024) Medications hydrochlorothiazid e (HYDRODIURIL) 25 MG TabletIndications: HTN, goal below 140/90 TAKE ONE TABLET BY MOUTH EVERY DAY 90 Tab 3 02/15/20 17 Active Additional Information Patient not taking.Reported on 07/02/2024 levothyroxine (LEVOXYL) 100 MCG TabletIndications: Hypothyroidism TAKE ONE TABLET BY MOUTH ONCE DAILY (AT LEAST 30 MINUTES PRIOR TO BREAKFAST OR OTHER MEDS) 90 Tab 1 05/24/20 17 Active Norgestrel-Ethinyl Estradiol (LOW-OGESTREL) 0.3-30 MG-MCG per Tablet Take 1 Tab by mouth daily. Active Meloxicam 15 MG Tablet Take 1 Tab by mouth daily. for pain. 90 Tab 3 07/21/20 17 Active Additional Information Patient not taking.Reported on 07/02/2024 lisinopril (PRINIVIL) 20 MG TabletIndications: HTN, goal below 140/90 Take 1 Tab by mouth daily. 90 Tab 3 07/21/20 17 Active metoprolol tartrate (LOPRESSOR) 50 MG TabletIndications: HTN, goal below 140/90 Take 0.5 Tabs by mouth 2 times a day. 90 Tab 5 07/21/20 17 Active Additional Information Patient not taking.Reported on 07/02/2024 lisinopril (PRINIVIL) 20 MG TabletIndications: Essential hypertension with goal blood pressure less than 140/90 TAKE ONE TABLET DAILY 90 Tab 3 07/26/20 17 Active lovastatin (MEVACOR) 20 MG Tablet TAKE ONE TABLET ONCE DAILY AT BEDTIME 90 Tab 1 08/01/20 17 Active Additional Information Patient not taking.Reported on 07/02/2024 atorvaSTATin (LIPITOR) 40 MG TabletIndications: Dyslipidemia, goal LDL below 160 TAKE ONE TABLET ONCE DAILY 30 Tab 5 09/08/20 17 Active ELINEST 0.3-30 MG-MCG per TabletIndications: General counseling for prescription of oral contraceptives TAKE ONE TABLET BY MOUTH ONE TIME DAILY 28 Tab 5 10/25/19 18 Active Additional Information Patient not taking.Reported on 07/02/2024 Xeljanz 5 MG Oral Tablet (Tofacitinib Citrate) Take 1 tablet by mouth 2 times a day. 60 Tablet 5 08/05/20 23 Active Additional Information Patient not taking.Reported on 07/02/2024 Xeljanz 5 MG Oral Tablet (Tofacitinib Citrate) Take 1 tablet by mouth twice daily 60 Tablet 5 02/22/2024 3:33 PM EDT 11/21/19 24 Active Additional Information Patient not taking.Reported on 07/02/2024 Rinvoq 15 MG Oral Tablet Extended Release 24 Hour (Upadacitinib ER) Take 1 tablet by mouth daily 30 Tablet 5 10/23/2024 9:18 AM EST 06/20/20 24 Active amLODIPine Besylate 10 MG Oral Tablet (Norvasc) Take 1 Tablet by mouth in the morning. Active buPROPion HCl ER (XL) 150 MG Oral Tablet Extended Release 24 Hour (Wellbutrin XL) Take 1 Tablet by mouth in the morning and 1 Tablet before bedtime. 05/08/20 24 Active DULoxetine HCl 60 MG Oral Capsule Delayed Release Particles (Cymbalta) Take 1 Capsule by mouth in the morning. 05/08/20 24 Active Famotidine 40 MG Oral Tablet (Pepcid) Take 1 Tablet by mouth in the morning. 04/19/20 24 Active Fenofibrate 48 MG Oral Tablet (Tricor) Take 1 Tablet by mouth in the morning. Active documented as of this encounter (statuses as of 11/05/2024) Active Problems Problem Noted Date Diagnosed Date Arthritis, rheumatoid 01/01/2024 Gout 01/26/2006 Hypothyroidism 12/23/2004 Encounter for other general counseling or advice on contraception 12/23/2004 Overview (07/24/2024): ICD-10 update of inactive term Varicella without complication 12/23/2004 HTN, goal below 140/90 08/18/2004 PURE HYPERCHOLESTEROLEM Overview (04/26/1999): 235 [place] 1994 Dyslipidemia, goal LDL below 130 Tobacco use disorder documented as of this encounter (statuses as of 11/05/2024) Immunizations Name Administration Dates Next Due Pneumococcal Polysaccharide PPV23 (Pneumovax) TDAP, Age 7 and older, IM (Adacel) 04/08/2010 documented as of this encounter Social History Tobacco Use Types Packs/Day Years Used Date Smoking Tobacco: Every Day Cigarettes 0.5 29 Smokeless Tobacco: Never Alcohol Use Standard Drinks/Week Comments Yes 3.3 (1 standard drin k = 0.6 oz pure alcohol) As of 2.17.2006, the last noted alcohol intake was 24 ounces. 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 Specifically requested [facility] Authorization to Release on file. Imaging pushed to [facility] external PACs connection Associated report(s) not needed. documented in this encounter Plan of Treatment Health Maintenance Due Date Last Done Comments COVID-19 Vaccine (#1) 1968 HIV Screening 1978 Albumin/Creatinine Ratio 1981 Hepatitis C Screening 1981 Zoster Vaccines (1 of 2) 1982 HPV/Co-Test 1993 Mammogram 2003 Cologuard 2008 Colonoscopy 2008 Colorectal Cancer Screening 2008 Fecal Occult Blood Test 2008 Sigmoidoscopy 2008 Pneumococcal Vaccine: 50+ Years (2 of 2 - PCV) 04/08/2011 04/08/2010 Depression Monitoring 10/10/2014 10/10/2013 Cervical Cancer Screening 01/18/2015 Pap Smear 01/18/2015 01/19/2012, 12/23, 12/23/2004, Additional history exists Lipid Panel 04/08/2015 04/08/2010, 04/23, 01/25/2006, Additional history exists GFR 11/07/2015 11/07/2014, 10/24 (Discussed), 01/19/2012, Additional history exists TSH 11/07/2015 11/07/2014, 10/24 (Discussed), 01/19/2012, Additional history exists DTap/Tdap Vaccines (2 - Td or Tdap) 04/08/2020 04/08/2010 Influenza Vaccine (FLU shot) (#1) 2024 HPV (Gardasil) Vaccine Aged Out No lo nger eligible based on patient's age to complete this topic Hepatitis B Vaccine Aged Out No longe r eligible based on patient's age to complete this topic MENINGOCOCCAL (MENACTRA/MENVEO) Aged Out No longer eligible based on patient's age to complete this topic documented as of this encounter Medical Devices Not on filedocumented as of this encounter Care Teams Saas Architect Relationship Specialty Start Date End Date Lalo Mendoza III, MD PCP - General 02/19/10 documented as of this encounter
--- OUTSIDE RECORDS SUMMARY | 2024-11-30 23:11 | External Medical Summary | Continuity of Care Document ---
Author Name Unknown Organization [facility] [address] [place] [id number] Care Team Providers Care [employer] Professional Name Role Phone Madhavi Garnett Primary Care Physician [phone] [id number] Date(s): 11/16/24 - 11/16/24 [place] [address] [address] [address] [facility] [address], [address] [place] [address] [phone] Encounter Diagnosis Lumbar stenosis(Discharge Diagnosis) - 11/16/24 Spondylolisthesis(Discharge Diagnosis) - 11/16/24 Discharge Disposition: Home or Self Care Attending Physician: GISSEL Can, Minna Harmon Allergies, Adverse Reactions, Alerts No Known Allergies Immunizations Given and Recorded Vaccine Date Status Refusal Reason tetanus/diphtheria/pertuss, acel (Tdap) 04/19/24 G iven tetanus/diphtheria/pertuss, acel (Tdap) 1 04/08/10 Recorded pneumococcal 23-valent vaccine 2 04/08/10 Recorded 1Result Comment: 2022-07-09: Historical information-source unspecified 2Result Comment: 2022-07-09: Historical information-source unspecified Medications acetaminophen 500 mg oral capsule Start: 12/12/19 4:54:00 PM EST, 1 cap, PO, q6h, PRN: as needed for pain Start Date: 12/12/19 Status: Ordered amLODIPine 10 mg oral tablet Start: 05/08/24 8:23:00 AM EDT, 1 tab, PO, Daily, Disp# 90 tab, Refills: 1, Pharmacy: [facility] Start Date: 05/08/24 Status: Ordered atorvastatin 40 mg oral tablet Start: 05/08/24 8:23:00 AM EDT, 1 tab, PO, Daily, Disp# 90 tab, Refills: 1, Pharmacy: [facility] Start Date: 05/08/24 Status: Ordered baclofen 5 mg oral tablet Start: 11/02/24 11:11:00 AM EST, See Instructions, Disp# 90 cap, Refills: 1, 1 to 2 tabs BID as needed for muscle spasms, Pharmacy: [facility] Start Date: 11/02/24 Status: Ordered buPROPion 150 mg/24 hours (XL) oral tablet, extended release Start: 08/13/24 11:41:00 AM EDT, 3 tab, PO, q24h, Disp# 270 tab, Refills: 1, Pharmacy: [facility] Start Date: 08/13/24 Stop Date: 02/09/25 Status: Ordered cyclobenzaprine 10 mg oral tablet Start: 11/16/24 12:27:00 PM EST, 30 each, 0 Refill(s), TAKE 1 TABLET BY MOUTH THREE TIMES DAILY FOR 7 DAYS NEEDED FOR SPASM Start Date: 11/16/24 Status: Ordered DULoxetine 60 mg oral delayed release capsule Start: 05/08/24 8:24:00 AM EDT, 1 cap, PO, Daily, Disp# 90 each, Refills: 1, Pharmacy: [facility] Start Date: 05/08/24 Status: Ordered famotidine 40 mg oral tablet Start: 04/19/24 11:41:00 AM EDT, 1 tab, PO, Daily, Disp# 90 tab, Refills: 3, Pharmacy: [facility] Start Date: 04/19/24 Status: Ordered fenofibrate 48 mg oral tablet Start: 05/08/24 8:25:00 AM EDT, 1 tab, PO, Daily, Disp# 90 tab, Refills: 1, Pharmacy: [facility] Start Date: 05/08/24 Status: Ordered gabapentin 100 mg oral capsule Start: 09/13/24 10:50:00 AM EST, 1 cap, PO, tid, Disp# 90 cap, Refills: 0, take 1 cap BID x 3 days then increase to 2 cap BID x 3 days then switch to 300mg dose., Pharmacy: [facility] Start Date: 09/13/24 Stop Date: 10/13/24 Status: Ordered gabapentin 300 mg oral capsule Start: 11/02/24 11:13:00 AM EST, 2 cap, PO, bid, Disp# 120 cap, Refills: 1, Pharmacy: [facility] Start Date: 11/02/24 Stop Date: 01/01/25 Status: Ordered levothyroxine 137 mcg (0.137 mg) oral tablet Start: 11/06/24 7:06:00 PM EST, 1 tab, PO, Daily, Disp# 30 tab, Refills: 1, Pharmacy: [facility] Start Date: 11/06/24 Status: Ordered levothyroxine 137 mcg (0.137 mg) oral tablet Start: 08/20/24 10:21:00 AM EDT, 1 tab, PO, Daily, Disp# 90 tab, Refills: 3, Note to Pharmacy: discontinue the 125 mcg, Pharmacy: [facility] Start Date: 08/20/24 Stop Date: 08/15/25 Status: Ordered Neurontin 100 mg oral capsule Start: 10/04/24 9:07:00 AM EST, See Instructions, Disp# 180 cap, 1 cap PO bid for 3 days then 2 cappo BID for 3 days then switch to 3 caps BID, Pharmacy: [facility] Start Date: 10/04/24 Status: Ordered potassium chloride 20 mEq oral tablet, extended release Start: 08/20/24 10:18:00 AM EDT, 1 tab, PO, Daily, Disp# 90 tab, Refills: 3, Pharmacy: [facility] Start Date: 08/20/24 Stop Date: 08/15/25 Status: Ordered Rinvoq 15 mg oral tablet, extended release Start: 06/19/24 9:03:00 AM EDT, 1 tab, PO, Daily, Disp# 30 tab, Refills: 5, Note to Pharmacy: specialty -new [place] - stopped pilar, Pharmacy: [facility], Supply Start Date: 06/19/24 Stop Date: 12/16/24 Status: Ordered Rinvoq 15 mg oral tablet, extended release Start: 06/20/24 6:23:00 PM EDT, 1 tab, PO, Daily, Disp# 30 tab, Refills: 5, Note to Pharmacy: [place],Pharmacy: [facility], Supply Start Date: 06/20/24 Stop Date: 12/17/24 Status: Ordered Mental Status 11/16/24 Barriers to Learning one year None evide nt Mandatory Health Literacy Documentation Yes Health Literacy Communication Barriers N ever Primary Language Icelandic Problem List Condition Confirmation Course Effective Dates Status Health Status Informant Charcot's joint of left foot Confirmed Active Chronic kidney disease (CKD), stage III (moderate) Confirmed Active COPD (chronic obstructive pulmonary disease) Confirmed Active Cigarette smoker Confirmed Active Gout Confirmed 06/28/16 Active Heartburn Confirmed Active Xptnxlh-Xkkvy-Uphhu syndrome Confirmed Active Hypertensive disorder Confirmed 06/28/16 Active Hypertriglyceridemia Confirmed Active Inflammatory polyarthritis Confirmed Active Hyperlipidemia, mixed Confirmed Active Moderate recurrent major depression Confirmed Active Sjogren syndrome, unspecified Confirmed Active Drug therapy Confirmed Active Plantar fasciitis Confirmed 06/28/16 Active Other polyosteoarthritis Confirmed Active Rheumatoid arthritis involving multiple sites Confirmed Active Sjogrens syndrome Confirmed Active Subclinical hypothyroidism Confirmed Active Postop check Confirmed Active Tick bite Confirmed Active Increased body weight Confirmed Active Diagnosis Diagnosis Type Effective Dates Health Status Clinical Service Informant Lumbar stenosis Discharge Diagnosis 11/16/24 Non-Specified Spondylolisthesis Discharge Diagnosis 11/16/24 Procedures Procedure Date Related Diagnosis Body Site Status CXR - Chest X-ray 1 04/22/24 Compl eted Foot X-ray 2 04/22/24 Completed X-ray of wrist 3 11/11/21 Complete d Doppler ultrasonography of b ilateral upper extremity blood vessels 4 11/04/20 Completed Foot 5 12/14/19 Completed Foot joint operations 6 C ompleted 1No acute cardiopulmonary findings. No change in appearance of the chest. 21.Right great toe wound. No radiographic evidence of acute osteomyelitis. No radiopaque foreign bodies. 2. Status post right midfoot fusion, as described above. Lucency adjacent to the 2 cannulated screws which traverse the bases of the fourth and fifth metatarsals and the calcaneocuboid articulation. This raises possibility of loosening. 3. Evidence for previous lisfranc injury. Pes planus deformity with midfoot collapse and severe osteoarthritis. [address] [place] [address] Impression: 1. No acute osseous pathology. Osteoarthritis 4No DVT within the right or left upper extremity. 51. Left Charcot capsular release. 2. Mid foot tarsal osteotomy with resection of the cuboid. 3. Reduction and pinning of mid tarsal joints. 4. Application of multiplanar Ilizarov-type frame for Charcot correction. 5. Complex wound closure, 1 x 2-cm plantar defect. 6Mulitple operations at both feet Results Radiology Reports * Exam Date Time Procedure Performing Provider Status 11/16/24 1:29 PM XR Spine Lumbosacral 4+ Views Adam Fairchild kandy S; Final Notes: (XR Spine Lumbosacral 4+ Views) Reason For Exam: r/o instability XR Spine Lumbosacral 4+ Views EXAMINATION: XR Spine Lumbosacral 4+ Views CLINICAL HISTORY: M48.061: Spinal stenosis, lumbar region without neurogenic; M48.061: Spinal stenosis, lumbar regionwithout neurogenic; Upright AP, Lateral, Flexion, Extension r/o instability COMPARISON: None FINDINGS: There is severe disc space degeneration of L4-5, and L5-S1 with endplate sclerosis and [id number]. There is moderate disc space degeneration of L3-4 with 6 mm anterolisthesis. Moderateposterior facet osteoarthritis present at L3-4, L4-5, and L5-S1. There is a Schmorl's node in the superior endplate of L2. There are scattered vascular calcifications of abdominal aorta without aneurysmal dilatation. Lateral erect views were obtained during flexion-extension maneuvers. This demonstrates limited range of motion. There is no evidence of segmental hypermobility. IMPRESSION: Severe disc space degeneration of L4-5, and L5-S1. No evidence of segmental hypermobility with flexion extension maneuvers Workstation ID: [id number] Final Dictated by:MD [place] Timothy J Dictated DT/TM:11/16/2024 1:34 Signed by:MD [place] Timothy J Signed (Electronic Signature):11/16/2024 1:33 p Social History Social History Type Response Tobacco Current every day sm oker, Cigarettes, Exposure to Secondhand Smoke: No. 10 per day. 40 year(s). Smoking Status Current every day li ght smoker Sex Female Sex Representation Female (finding) Implantable Device List Procedure Provider Procedure Date Device Type Site Unknown Unknown 01/09/21 Unknown Unknown Device Identifier Serial Number Lot or Batch Number Manufacturing Date Expiration Date Distinct Identification Code MRI Safety Implantable Status Assigning Authority Unknown Unknown [id number] Unknown 09/20/21 Unknown Unknown Active Unknown Unknown Unknown [id number] Unknown 06/23/25 Unknown Unknown Active Unk nown Unknown Unknown NA Unknown Unknown Unknown Unknown Active Unkn own Unknown Unknown NA Unknown Unknown Unknown Unknown Active Unkn own Unknown Unknown NA Unknown Unknown Unknown Unknown Active Unkn own Procedure Provider Procedure Date Device Type Site Unknown Unknown 12/14/19 Unknown Unknown Device Identifier Serial Number Lot or Batch Number Manufacturing Date Expiration Date Distinct Identification Code MRI Safety Implantable Status Assigning Authority Unknown Unknown [id number] Unknown 06/23/22 Unknown Unknown Active Unknown Patient Care team information Care Team Personnel Name: MD Jean Pierre, Cristofer Dee Position: Physician - Orthopaedic Surg Member Role: Lifetime Relationship Address: [address] [facility] [address] [place] [address] [place] Name: MD Tamir, Madhavi Medina Position: Physician - Family Med Member Role: Primary Care Provider Address: [address] [facility] [facility] [address] [place] [address] [place] Name: Morgan Robledo Erin Position: Pharmacist Member Role: Pharmacy - Lifetime Name: DO Alarcon Sophia Elizabeth Position: Resident Member Role: Lifetime Relationship Address: [address] [place] [address] Care Team Related Persons Name: URIAH CAN
--- OUTSIDE RECORDS SUMMARY | 2024-11-30 23:11 | External Medical Summary | Summary of Care ---
Author Name Unknown Organization [facility] Address [address] [facility] [place] [address] Phone [phone] Care Team Providers Care Cook Fish Eggs Name Role Phone Kelly SILVA MD, Lalo Torres Primary Care Provider [phone] Encounter Details Date Type Department Care Team (Late st Contact Info) Description 11/13/2024 Population Health External Data Unspecified Department Allergies No known active allergiesdocumented as of this encounter (statuses as of 11/13/2024) Medications hydrochlorothiazid e (HYDRODIURIL) 25 MG TabletIndications: [...] as of this encounter (statuses as of 11/13/2024) Active Problems Problem Noted Date Diagnosed Date Arthritis, rheumatoid 01/01/2024 Gout 01/26/2006 Hypothyroidism 12/23/2004 Encounter for other general counseling or advice on contraception 12/23/2004 Overview (07/24/2024): ICD-10 update of inactive term Varicella without complication 12/23/2004 HTN, goal below 140/90 08/18/2004 PURE HYPERCHOLESTEROLEM Overview (04/26/1999): 235 [place] 1994 Dyslipidemia, goal LDL below 130 Tobacco use disorder documented as of this encounter (statuses as of 11/13/2024) Immunizations Name Administration Dates Next Due Pneumococcal [...] on file documented as of this encounter Plan of Treatment Health Maintenance [...] filedocumented as of this encounter Care Teams Cook Fish Eggs Relationship Specialty Start Date End Date Lalo Mendoza III, MD PCP - General 02/19/10 documented as of this encounter
--- OUTSIDE RECORDS SUMMARY | 2024-11-30 23:11 | External Medical Summary | Continuity of Care Document ---
Author Name Unknown Organization [id number] Address [address] [place] [phone] Care Team Providers Care Director Of Retail Name Role Phone Madhavi Garnett Primary Care Physician [phone] [id number] Date(s): 11/22/24 - 11/22/24 [facility] [address] [id number] [facility] [address] [place] [id number] Encounter Diagnosis Lumbar radiculopathy(Discharge Diagnosis) - 11/22/24 Discharge Disposition: Home or Self Care Attending Physician: DO Baptiste Jina Allergies, Adverse Reactions, Alerts No Known Allergies Assessment and Plan Extracted from: Title:Follow Up Visit, low back pain Author:Kamini castle DO, Jina Date:11/22/24 1.BilateralLow BackP ainradiating into right anterior thigh, groin and down into calf.Symptoms are inthe setting ofrheumatoid arthritis of multiple joints, Sjogren's disease, chronic tobacco use, and history of Charcot foot bilaterally and kidney disease. Likely Lumbar spinal stenosis per MRI LikelyLumbar Radiculopathy given radicular complaints,positive dural tensions signs, motor deficits LikelyconcomitantMyofascial Pain giventenderness to palpation PossibleDiscogenic Pain givenreproduction of pain with flexion-based maneuvers PossiblyconcomitantLumbar Facet-mediated Pain givenpain with ipsilateral oblique extension, tenderness over facet joints, facet arthropathy seen on diagnostic imaging Possible Sacroiliac Joint Pain giventenderness over PSIS/SIJ PLAN: Diagnostics: None at this time Injections: None at this time Patient could be a candidate for an epidural steroid injection however due tolikely surgery, will hold off at this time _ _ _ Medications: The patient was educated about medication risks and benefits, Zanaflex (Tizanidine) 2mg 1-2 tabs PO TID PRN #90, Lyrica 75 mg BID #60 Recommend tapering off gabapentin _ Modalities: None at this time Orthotics:/DME None at this time Therapeutic exercise: Continue PT Consults: per Neurosurgery "Discussed that surgery would entail an L3-S1 laminectomy and posterior instrumented fusion with an L3-L4 TLIF. She is going to trial physical therapy first and then meet with pain management. If she does not respond to conservative treatment, she will call the office for an appointment to discuss surgery further". " Grade 1 anterior listhesis of L3 on L4. At L3-L4 there is severe central canal, and lateral recess stenosis. At L4-L5 and L5-S1 there is moderate to severe central canal, lateral recess, and foraminal stenosis. At this time, she has 2 options. The first option would, would be conservative treatment with physical therapy and/or pain management to trial an injection. The second option, would be surgery. For her, surgery would entail an L3-S1 laminectomy and posterior instrumented fusion with an L3-L4 TLIF." Education: A lengthy discussion was held with the patient regarding their diagnosis andprognosis. We discussed workup and treatment strategies including physical therapy, pharmacologic management, injections, and surgery The patient s questions were sought and answered satisfactorily. Other: Reviewed prior notes from: Neurosurgery Follow-up visit: Scheduled for:follow up to coincide with completion of, PT. If current medications fail, could consider robaxin and cymbalta Advised patient to seek urgent medical attention if they develop new onset progressive weakness and/or bowel/bladder dysfunction Glenda Baptiste, DO Sports Medicine and Interventional Spine Physical Medicine & Rehabilitation Total time on the date of the encounter which includes both the lpiq-ey-nnoh and ulp-vfho-ah-face time personally spent by the physician and/or other qualified health pet care worker(s) on the day of the encounter consisting of a total of40 minutes (F/U -level 5)including Medical Decision Making, preparing to see the patient (eg, review of tests), obtaining and/or reviewing separately obtained history, performing a medically appropriate examination and/or evaluation, counseling and educating the patient/family/caregiver,ordering medications, tests, or procedures,referring and communicating with other health care rep, documenting clinical information in the electronic or other health record, independently interpreting results (not separately reported) and communicating results to the patient/ family/caregiver, care coordination Immunizations Given and Recorded Vaccine Date Status [...] Daily, Disp# 90 tab, Refills: 1, Pharmacy: [facility] Start Date: 05/08/24 Status: Ordered atorvastatin 40 mg oral tablet Start: 05/08/24 8:23:00 AM EDT, 1 tab, PO, Daily, Disp# 90 tab, Refills: 1, Pharmacy: [facility] Start Date: 05/08/24 Status: Ordered baclofen 5 mg oral tablet Start: 11/02/24 11:11:00 AM EST, See Instructions, Disp# 90 cap, Refills: 1, 1 to 2 tabs BID as needed for muscle spasms, Pharmacy: [facility] Start Date: 11/02/24 Status: Ordered buPROPion 150 mg/24 hours (XL) oral tablet, extended release Start: 08/13/24 11:41:00 AM EDT, 3 tab, PO, q24h, Disp# 270 tab, Refills: 1, Pharmacy: [facility] Start Date: 08/13/24 Stop Date: 02/09/25 [...] Pharmacy: [facility] Start Date: 04/19/24 Status: Ordered fenofibrate 48 mg oral tablet Start: 05/08/24 8:25:00 AM EDT, 1 tab, PO, Daily, Disp# 90 tab, Refills: 1, Pharmacy: [facility] Start Date: 05/08/24 Status: Ordered gabapentin [...] then switch to 3 caps BID, Pharmacy: [facility] Start Date: 10/04/24 Status: Ordered potassium chloride 20 mEq oral tablet, extended release Start: 08/20/24 10:18:00 AM EDT, 1 tab, PO, Daily, Disp# 90 tab, Refills: 3, Pharmacy: [facility] Start Date: 08/20/24 Stop Date: 08/15/25 Status: Ordered pregabalin 75 mg oral capsule Start: 11/22/24 11:40:00 AM EST, 1 cap, PO, bid, Disp# 60 cap, Pharmacy: [facility] Start Date: 11/22/24 Stop Date: 12/22/24 Status: Ordered Rinvoq 15 mg oral tablet, extended release Start: 06/19/24 9:03:00 AM EDT, 1 tab, PO, Daily, Disp# 30 tab, Refills: 5, Note to Pharmacy: specialty -new GUY abbasi - stopped xeljanz, Pharmacy: [facility], Supply Start Date: 06/19/24 Stop Date: 12/16/24 Status: Ordered Rinvoq 15 mg oral tablet, extended release Start: 06/20/24 6:23:00 PM EDT, 1 tab, PO, Daily, Disp# 30 tab, Refills: 5, Note to Pharmacy: GUY laguerre,Pharmacy: [facility], Supply Start Date: 06/20/24 Stop Date: 12/17/24 Status: Ordered Zanaflex 4 mg oral tablet Start: 11/22/24 11:40:00 AM EST, 1 tab, PO, q8h, Disp# 90 tab, Refills: 2, for muscle pain, Pharmacy: [facility] Start Date: 11/22/24 Stop Date: 02/20/25 Status: Ordered Mental Status 11/22/24 Barriers to Learning one year None evide nt Mandatory Health Literacy Documentation Yes Health Literacy Communication Barriers N ever Primary Language Irish Problem List Condition Confirmation Course Effective Dates Status Health Status Informant Charcot's joint of left foot Confirmed Active Chronic kidney disease (CKD), stage III (moderate) Confirmed Active COPD (chronic obstructive pulmonary disease) Confirmed Active Cigarette smoker Confirmed Active Gout Confirmed 06/28/16 Active Heartburn Confirmed Active Kbmyiai-Ynosf-Fqmqx syndrome Confirmed Active Hypertensive disorder Confirmed 06/28/16 [...] Dates Health Status Clinical Service Informant Lumbar radiculopathy Discharge Diagnosis 11/22/24 Non-Specified Procedures Procedure Date Related Diagnosis Body Site [...] deformity with midfoot collapse and severe osteoarthritis. [address] [place] [address] Impression: 1. No acute osseous pathology. Osteoarthritis 4No DVT within the right or left upper extremity. 51. Left Charcot capsular release. 2. Mid foot tarsal osteotomy with resection of the cuboid. 3. Reduction and pinning of mid tarsal joints. 4. Application of multiplanar Ilizarov-type frame for Charcot correction. 5. Complex wound closure, 1 x 2-cm plantar defect. 6Mulitple operations at both feet Social History Social History Type Response Tobacco [...] Safety Implantable Status Assigning Authority Unknown Unknown [id number] Unknown 09/20/21 Unknown Unknown Active Unknown Unknown Unknown [id number] Unknown 06/23/25 Unknown Unknown Active Unk nown [...] Safety Implantable Status Assigning Authority Unknown Unknown [id number] Unknown 06/23/22 Unknown Unknown Active Unknown Ortho Outpt Note * DO Baptiste Jina: PERFORM, MODIFY Event Display: Ortho Outpt Note Authored Date: [id number] Chief Complaint f/u back pain. Medications not helping. Did not start PT Primary Care Provider MD Tamir, Madhavi Medina Subjective Follow up Interval History Today, patient is here to follow up after seeing neurosurgery. Unfortunatelyher 600 mg Gabapentin and Baclofen 10 mg are not helpful I discussed that our next step would be to try a different muscle relaxer and different nerve pain medication A spine injection could help but this would delay surgery by 3 months and the patient would like togo forward with surgery per Neurosurgery "Discussed that surgery would entail an L3-S1 laminectomy and posterior instrumented fusion with an L3-L4 TLIF. She is going to trial physical therapy first and then meet with pain management. If she does not respond to conservative treatment, she will call the office for an appointment to discuss surgery further". " Grade 1 anterior listhesis of L3 on L4. At L3- L4 there is severe central canal, and lateral recess stenosis. At L4-L5 and L5-S1 there is moderate to severe central canal, lateral recess, and foraminal stenosis. At this time, she has 2 options. The first option would, would be conservative treatment with physical therapy and/or pain management to trial an injection. The second option, would be surgery. For her, surgery would entail an L3-S1 laminectomy and posterior instrumented fusion with an L3-L4 TLIF." The patientarrived to the examination accompanied by her daughter Denies new onset of focal weakness or bowel/bladder dysfunction. Denies other changes in medical history since last visit. RECENT PERTINENT STUDIES: NA Summary from initial eval: Objective Physical Exam Summary from initial eval: Initial Evaluation Chief Complaint:Zeinab Genao presents with right-sidedlow back pain that travels to the groin and anterior thigh. Pain used to travel to the calf. Symptoms: Pain,burning sensation History of Present Illness: Onset:3-4 weeksago after no known cause Prior trauma / injury/ surgeryof the affected area(s):_none Duration / Timing of Symptoms:Constant, Worse at night oPain has beenworseningsince onset Characteristic of Symptoms:sharp, stabbing, burning, electrical/shooting oAssociated Neuropathic Symptoms:radiculopathy, burning pain in leg, weakness oAssociated Mechanical Joint Symptoms:none Alleviating Factors:nothing Aggravating Factors:prolonged sitting, prolonged standing, prolonged walking Spine or Limb Pain Worse:Limb pain is greater than spine pain Treatments Tried: oMedications: Current:tylenol Previous:oral steroid, flexeril oTherapeutic Exercise:none oInjections:none oOther:patient care Functional Status: 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 Psych: Affect normal and appropriate. HEENT: Head normocephalic and atraumatic. Neck is supple. Chest: Breathing is non-labored. Skin: There are no gross skin lesions. Gait:Antalgic. Today's physical exam was complicated by the level of patient's pain in the right lower extremity. Patient reported being in so much pain that she was unable tostand. Physical exam was alsocomplicated by the shaking in the patient's right lower extremity. Lumbar Exam Lumbar Spine: Inspection: Skin intact. AROM:Pain-limited ROMPain, at end range of flexion, at end range of extension, with ipsilateral oblique extension (facet joint loading)right Palpation:Tenderness over, Right, Left, paraspinal muscles/facet joints No tenderness, Tenderness over:Right, Sacroiliac/PSIS FAIR Test (Piriformis):Negative SI Joint Multitest Regimen of Pain Provocation Tests:Unable to perform today Ronen's Sign, Negative Neuro: Sensation:Intact throughout bilateral lower limbs, except for the following:, Decreasedsensationon the plantar aspect of the feet bilaterally which the patient attributes tochronic peripheral neuropathy and prior surgeries and known Charcot foot Strength:5/5 throughout bilateral lower limbs, except for the following:, Hip Flexors (L2), Knee Extensors (L3), 4+/5 on the, Righthoweverwas difficult to test due to the patient's shaking leg DTRs:2+ throughout bilateral lower limbs except for the following:, 0, Achilles (S1), on the left. Jendrassik maneuver's were were used to obtain1+ Achilles on the right. Tests for lumbar radiculopathy: Slump (for radicular symptoms):, Positive, on the right Straight Leg Raise Test (Lasgue's sign):on the right Long tract signs (UMN signs):Ankle clonus, babinski sign, negativeHoffman's positive Diagnostic Results Diagnostic Results RECENT PERTINENT STUDIES: Lumbar MRI 10/08/2024 No evidence of an acute fracture. Mild retrolisthesis of L1 on L2 and L2 on L3 and grade 1 anterolisthesis of L3 on L4. Mild lumbar levoscoliosis. Mild degenerative vertebral body height loss at L4 and L5. Multilevel degenerative intervertebraldisc height loss, most advanced at L4-L5 and L5-S1, and disc desiccation. Endplate associated degenerative changes in the bone marrow including mild edema at L4-L5 and L5-S1 with endplate irregularity. Schmorl's node at the L2 superior endplate. 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 Degenerative changes by level: T12-L1: No significant spinal canal or neuroforaminal narrowing. L1-L2: Small disc bulge and ligamentum flavum thickening contributes to mild canal narrowing without significant neuroforaminal narrowing. L2-L3 spondylolisthesis, disc bulge, ligamentum flavum thickening and facet arthropathy contributesto mild to moderate spinal canal narrowing and mild bilateral neuroforaminal narrowing. L3-L4: Spondylolisthesis, disc bulge with broad-based protrusion superimposed, ligamentum flavum thickening and facet arthropathy contributes to marked spinal canal narrowing, lateral recess narrowing and moderate bilateral neuroforaminal narrowing. L4-L5: Endplate osteophytes ligamentum flavum thickening and facet arthropathy contributes to moderate spinal canal narrowing and marked right and moderate left neuroforaminal narrowing. L5-S1: Endplate osteophytes, disc bulge, facet arthropathy contributes to mild spinal canal narrowing and moderate to marked right and marked left neuroforaminal narrowing. Spinal cord terminates in normal position at the L1-L2 level. The conus medullaris is unremarkable. Crowding of the cauda equina nerve roots related to thecal sac narrowing, worse at L3-L4 and disorganize configuration of caudal nerve roots. Paravertebral soft tissues are unremarkable. Paraspinal muscle atrophy Impression: Multilevel degenerative changes, as detailed. Degenerative disc disease is most advanced L4-L5 and L5-S1 and there is mild degenerative vertebral body height loss at L4 and L5. Markedspinal canal narrowing at L3-L4 and moderate canal narrowing at L4-L5. Neuroforaminal narrowing is most severe at L4-L5 on the right and L5-S1 on the left. Lumbar x-rays 09/13/24 FINDINGS: Lumbar height appears normal. 6 mm retrolisthesis of L3-L4, which is unchanged in flexion and extension. L3-L4, L4-L5, and L5-S1 disc space narrowing with marginal osteophytes. Facet hypertrophy. No osseous lesions or fractures are seen. The perivertebral soft tissues appear unremarkable. Note is made of loss of normal lumbar lordotic curvature. Calcification of the lower extremity arteries. IMPRESSION: Grade 1 retrolisthesis of L3-L4 without evidence of dynamic instability. Moderate degenerative change without acute osseous abnormality of the lumbar spine. EMG/NCS: none Assessment/Plan 1.BilateralLow BackPainradiating into right anterior thigh, groin and down into calf.Symptoms are inthe setting ofrheumatoid arthritis of multiple joints, Sjogren's disease, chronic tobacco use, and history of Charcot foot bilaterally and kidney disease. Likely Lumbar spinal stenosis per MRI LikelyLumbar Radiculopathy given radicular complaints,positive dural tensions signs, motor deficits LikelyconcomitantMyofascial Pain giventenderness to palpation PossibleDiscogenic Pain givenreproduction of pain with flexion-based maneuvers PossiblyconcomitantLumbar Facet-mediated Pain givenpain with ipsilateral oblique extension, tenderness over facet joints, facet arthropathy seen on diagnostic imaging Possible Sacroiliac Joint Pain giventenderness over PSIS/SIJ PLAN: Diagnostics: None at this time Injections: None at this time Patient could be a candidate for an epidural steroid injection however due tolikely surgery, will hold off at this time _ _ _ Medications: The patient was educated about medication risks and benefits, Zanaflex (Tizanidine) 2mg 1-2tabs PO TID PRN #90, Lyrica 75 mg BID #60 Recommend tapering off gabapentin _ Modalities: None at this time Orthotics:/DME None at this time Therapeutic exercise: Continue PT Consults: per Neurosurgery "Discussed that surgery would entail an L3-S1 laminectomy and posterior instrumented fusion with an L3-L4 TLIF. She is going to trial physical therapy first and then meet with pain management. If she does not respond to conservative treatment, she will call the office for an appointment to discuss surgery further". " Grade 1 anterior listhesis of L3 on L4. At L3- L4 there is severe central canal, and lateral recess stenosis. At L4-L5 and L5-S1 there is moderate to severe central canal, lateral recess, and foraminal stenosis. At this time, she has 2 options. The first option would, would be conservative treatment with physical therapy and/or pain management to trial an injection. The second option, would be surgery. For her, surgery would entail an L3-S1 laminectomy and posterior instrumented fusion with an L3-L4 TLIF." Education: A lengthy discussion was held with the patient regarding their diagnosis andprognosis. We discussed workup and treatment strategies including physical therapy, pharmacologic management, injections, and surgery The patients questions were sought and answered satisfactorily. Other: Reviewed prior notes from: Neurosurgery Follow-up visit: Scheduled for:follow up to coincide with completion of, PT. If current medications fail, could consider robaxin and cymbalta Advised patient to seek urgent medical attention if they develop new onset progressive weakness and/or bowel/bladder dysfunction Glenda Baptiste, DO Sports Medicine and Interventional Spine Physical Medicine & Rehabilitation Total time on the date of the encounter which includes both the wkhn-fd-vecx and dsk-yndf-oy-face time personally spent by the physician and/or other qualified health pet care worker(s) on the day of the encounter consisting of a total of40 minutes (F/U -level 5)including Medical Decision Making, preparing to see the patient (eg, review of tests), obtaining and/or reviewing separately obtained history, performing a medically appropriate examination and/or evaluation, counseling and educating the patient/family/caregiver,ordering medications, tests, or procedures,referring and communicating with other health care rep, documenting clinical information in the electronic or other health record, independently interpreting results (not separately reported) and communicating results to the patient/ family/caregiver, care coordination Electronic Signature on File Electronically Reviewed/Signed by: Glenda Baptiste DO Author Signature Dt/Tm:11/21/2024 07:23 PM Division of Sports Medicine Electronically Reviewed/Signed by: Glenda Baptiste DO Cosigner Signature Dt/Tm: 11/22/2024 04:47 PM Division of Sports Medicine JL Patient Care team information Care Team Personnel Name: MD Jean Pierre, Cristofer Dee Position: Physician - Orthopaedic Surg Member Role: Lifetime Relationship Address: [address] [facility] [address] [place] [address] [place] Name: MD Garnett Amy L Position: Physician - Family Med Member Role: Primary Care Provider Address: [address] [facility] [address] [place] [address] [place] Name: Morgan Robledo Erin Position: Pharmacist Member Role: Pharmacy - Lifetime Name: DO Alarcon Sophia Elizabeth Position: Resident Member Role: Lifetime Relationship Address: [address] [facility] [place] [address] [place] Care Team Related Persons Name: URIAH CAN
--- OUTSIDE RECORDS SUMMARY | 2024-11-30 23:11 | External Medical Summary | Continuity of Care Document ---
Author Name Unknown Organization [facility] [id number] Address [address] [place] [phone] Care Team Providers Care Shoer Name Role Phone Madhavi Garnett Primary Care Physician [phone] Encounter [id number] Date(s): 11/02/24 - 11/02/24 [facility] [address] [place] [id number] [facility] Medicine [address] [place] [id number] Encounter Diagnosis Spinal stenosis(Discharge Diagnosis) - 11/02/24 Discharge Disposition: Home or Self Care Attending Physician: DO Baptiste Jina Allergies, Adverse Reactions, Alerts No Known Allergies Assessment and Plan Extracted from: Title:Follow Up Visit, low back pain Author:Kamini castle DO, Jina Date:11/02/24 ASSESSMENT: 1.BilateralLow BackPainradiating into right anterior thigh, groin [...] for an epidural steroid injection however due to increased weakness, I would want her to see neurosurgery first _ _ _ Medications: The patient was educated about medication risks and benefitsTrialing increase in gabapentin to 600 mgp.o. twice daily (creatinine clearance was calculated to be55) Baclofen 1- tabs BID as needed for muscle spasms Counseled patient that these medications may cause drowsiness _ Modalities: None at this time Orthotics:/DME None at this time Therapeutic exercise: PT prescription written Consults: Referral placed to patienthas worsening severe pain and worsening weaknessin the setting of likely spinal stenosisand lumbar radiculopathy as seen on MRI Education: A lengthy discussion was held with the patient regarding their diagnosis andprognosis. We discussed workup and treatment strategies including physical therapy, pharmacologic management, injections, and surgery The patient s questions were sought and answered satisfactorily. Other: Reviewed prior notes from: NA Follow-up visit: Scheduled for:follow up to coincide with completion of, consultation Advised patient to seek urgent medical attention if they develop new onset progressive weakness and/or bowel/bladder dysfunction Glenda Baptiste, Sports Medicine and Interventional Spine Physical Medicine & Rehabilitation Total time on the date of the encounter which includes both the rmwr-ed-evse and tgy-hefm-wb-face time personally spent by the physician and/or other qualified health healthcare consultant(s) on the day of the encounter consisting of a total of30 minutes (F/U -level 4)including Medical Decision Making, preparing to see the patient (eg, review of tests), obtaining and/or reviewing separately obtained history, performing a medically appropriate examination and/or evaluation, counseling and educating the patient/family/caregiver,ordering medications, tests, or procedures,referring and communicating with other health reproductive healthcare assistant, documenting clinical information in the electronic or [...] Daily, Disp# 90 tab, Refills: 1, Pharmacy: [facility] Start Date: 05/08/24 Status: Ordered atorvastatin 40 mg oral tablet Start: 05/08/24 8:23:00 AM EDT, 1 tab, PO, Daily, Disp# 90 tab, Refills: 1, Pharmacy: [facility] [place] [id number] Start Date: 05/08/24 Status: Ordered baclofen 5 mg oral tablet Start: 11/02/24 11:11:00 AM EST, See Instructions, Disp# 90 cap, Refills: 1, 1 to 2 tabs BID as needed for muscle spasms, Pharmacy: [facility] Start Date: 11/02/24 Status: Ordered buPROPion 150 mg/24 hours (XL) oral tablet, extended release Start: 08/13/24 11:41:00 AM EDT, 3 tab, PO, q24h, Disp# 270 tab, Refills: 1, Pharmacy: [facility] Start Date: 08/13/24 Stop Date: 02/09/25 Status: Ordered DULoxetine 60 mg oral delayed release capsule Start: 05/08/24 8:24:00 AM EDT, 1 cap, PO, Daily, Disp# 90 each, Refills: 1, Pharmacy: [facility] [address] Start Date: 05/08/24 Status: Ordered famotidine 40 mg oral tablet Start: 04/19/24 11:41:00 AM EDT, 1 tab, PO, Daily, Disp# 90 tab, Refills: 3, Pharmacy: [facility] [address] Start Date: 04/19/24 Status: Ordered fenofibrate 48 mg oral tablet Start: 05/08/24 8:25:00 AM EDT, 1 tab, PO, Daily, Disp# 90 tab, Refills: 1, Pharmacy: [facility] [address] Start Date: 05/08/24 Status: Ordered gabapentin 100 mg oral capsule Start: 09/13/24 10:50:00 AM EST, 1 cap, PO, tid, Disp# 90 cap, Refills: 0, take 1 cap BID x 3 days then increase to 2 cap BID x 3 days then switch to 300mg dose., Pharmacy: [facility] [address] Start Date: 09/13/24 Stop Date: 10/13/24 Status: Ordered gabapentin 300 mg oral capsule Start: 11/02/24 11:13:00 AM EST, 2 cap, PO, bid, Disp# 120 cap, Refills: 1, Pharmacy: [facility] [address] Start Date: 11/02/24 Stop Date: 01/01/25 Status: Ordered levothyroxine 137 mcg (0.137 mg) oral tablet Start: 08/20/24 10:21:00 AM EDT, 1 tab, PO, Daily, Disp# 90 tab, Refills: 3, Note to Pharmacy: discontinue the 125 mcg, Pharmacy: [facility] [address] Start Date: 08/20/24 Stop Date: 08/15/25 Status: Ordered Medrol Dosepak 4 mg oral tablet Start: 08/13/24 11:38:00 AM EDT, See Instructions, Disp# 21 tab, Take as directed on package labeling for 6 days., Pharmacy: [facility] [address] Start Date: 08/13/24 Stop Date: 08/19/24 Status: Ordered Neurontin 100 mg oral capsule Start: 10/04/24 9:07:00 AM EST, See Instructions, Disp# 180 cap, 1 cap PO bid for 3 days then 2 cappo BID for 3 days then switch to 3 caps BID, Pharmacy: [facility] [address] Start Date: 10/04/24 Status: Ordered potassium chloride 20 mEq oral tablet, extended release Start: 08/20/24 10:18:00 AM EDT, 1 tab, PO, Daily, Disp# 90 tab, Refills: 3, Pharmacy: [facility] [address] Start Date: 08/20/24 Stop Date: 08/15/25 Status: Ordered Rinvoq 15 mg oral tablet, extended release Start: 06/19/24 9:03:00 AM EDT, 1 tab, PO, Daily, Disp# 30 tab, Refills: 5, Note to Pharmacy: specialty -[facility] [place] pl[facility] - stopped pilar, Pharmacy: [facility], Supply Start Date: 06/19/24 Stop Date: 12/16/24 Status: Ordered Rinvoq 15 mg oral tablet, extended release Start: 06/20/24 6:23:00 PM EDT, 1 tab, PO, Daily, Disp# 30 tab, Refills: 5, Note to Pharmacy: GUY laguerre,Pharmacy: [facility], Supply Start Date: 06/20/24 Stop Date: 12/17/24 Status: Ordered traMADol 50 mg oral tablet Start: 08/24/24 4:59:00 PM EDT, 1 tab, PO, q6h, Disp# 12 tab, Pharmacy: [facility] Start Date: 08/24/24 Stop Date: 08/27/24 Status: Ordered Mental Status 11/02/24 Barriers to Learning one year None evide nt Mandatory Health Literacy Documentation Yes Health Literacy Communication Barriers N ever Primary Language Cymro Problem List Condition Confirmation Course Effective Dates Status Health Status Informant Charcot's joint of left foot Confirmed Active Chronic kidney disease (CKD), stage III (moderate) Confirmed Active COPD (chronic obstructive pulmonary disease) Confirmed Active Cigarette smoker Confirmed Active Gout Confirmed 06/28/16 Active Heartburn Confirmed Active Inugekm-Qozmw-Urjxg syndrome Confirmed Active Hypertensive disorder Confirmed 06/28/16 [...] Diagnosis Diagnosis Type Effective Dates Health Status Cl inical Service Informant Spinal stenosis Discharge Diagnosis 11/02/24 Non-Specified Procedures Procedure Date Related Diagnosis Body [...] deformity with midfoot collapse and severe osteoarthritis. [address] [place] [address] Impression: 1. No acute osseous pathology. Osteoarthritis [...] 10 per day. 40 year(s). Smoking Status Never smoked cigaret marisela Sex Female Sex Representation Female (finding) Implantable Device List Procedure Provider Procedure Date Device Type Site Unknown Unknown 01/09/21 Unknown Unknown Device Identifier Serial Number Lot or Batch Number Manufacturing Date Expiration Date Distinct Identification Code MRI Safety Implantable Status Assigning Authority Unknown Unknown [id number] Unknown 09/20/21 Unknown Unknown Active Unknown Unknown Unknown [id number] Unknown 06/23/25 Unknown Unknown Active Unk nown [...] Safety Implantable Status Assigning Authority Unknown Unknown [id number] Unknown 06/23/22 Unknown Unknown Active Unknown Ortho Outpt Note * DO Baptiste Jina: PERFORM Event Display: Ortho Outpt Note Authored Date: [id number] Primary Care Provider MD Tamir, Madhavi Medina Subjective Follow up Interval History Today, patient is here to reviewlumbar MRI results which revealed findings below. Patient feels that the symptoms are getting worse and she is having increasing weakness in the right leg. The pain now goes past her thighand into her calf. The numbness is now constant. Patientis seen in follow-up aftergabapentin 300 mg twice daily prescribed at last visit. She is not sure if this is helping with the nerve pain yethowevershe cannot say if that is making her drowsy either. The patientarrived to the examination accompanied by her daughter Denies new onset ofbowel/bladder dysfunction, no new onset of saddle anesthesia. Denies other changes in medical history since last visit. RECENT PERTINENT STUDIES: Lumbar MRI: Impression: Multilevel degenerative changes, as detailed. Degenerative disc disease is most advanced L4-L5 and L5-S1 and there is mild degenerative vertebral body height loss at L4 and L5. Markedspinal canal narrowing at L3-L4 and moderate canal narrowing at L4-L5. Neuroforaminal narrowing is most severe at L4-L5 on the right and L5-S1 on the left. 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 Physical exam was also complicated by the shaking in the patient's right lower extremity. Lumbar Exam Lumbar Spine: Inspection: Skin intact. AROM:Pain-limited ROMPain, at end range of flexion, at end range of extension, with ipsilateraloblique extension (facet joint loading)right Palpation:Tenderness over, Right, Left, paraspinal muscles/facet joints No tenderness, Tenderness over:Right, Sacroiliac/PSIS FAIR Test (Piriformis):Negative SI Joint Multitest Regimen of Pain Provocation Tests:Unable to perform today Ronen's Sign, Negative Neuro: Sensation:Intact throughout bilateral lower limbs, except for the following:, Decreasedsensationon the plantar aspect of the feet bilaterally which the patient attributes tochronic peripheralneuropathy and prior surgeries and known Charcot foot [...] clonus, babinski sign, negativeHoffman's positive Diagnostic Results RECENT PERTINENT STUDIES: Lumbar MRI [...] Schmorl's node at the L2 superior endplate. Addison's disease most evident at L3-L4 and L4-L5. [...] of the lumbar spine. EMG/NCS: none Assessment/Plan ASSESSMENT: 1.BilateralLow BackPainradiating into right anterior thigh, groin [...] for an epidural steroid injection however due to increased weakness, I would want her to see neurosurgery first _ _ _ Medications: The patient was educated about medication risks and benefitsTrialing increase in gabapentin to 600 mgp.o. twice daily (creatinine clearance was calculated to be55) Baclofen 1- tabs BID as needed for muscle spasms Counseled patient that these medications may cause drowsiness _ Modalities: None at this time Orthotics:/DME None at this time Therapeutic exercise: PT prescription written Consults: Referral placed to patienthas worsening severe pain and worsening weaknessin the setting of likely spinal stenosisand lumbar radiculopathy as seen on MRI Education: A lengthy discussion was held with the patient regarding their diagnosis andprognosis. We discussed workup and treatment strategies including physical therapy, pharmacologic management, injections, and surgery The patients questions were sought and answered satisfactorily. Other: Reviewed prior notes from: NA Follow-up visit: Scheduled for:follow up to coincide with completion of, consultation Advised patient to seek urgent medical attention if they develop new onset progressive weakness and/or bowel/bladder dysfunction Glenda Baptiste, DO Sports Medicine and Interventional Spine Physical Medicine & Rehabilitation Total time on the date of the encounter which includes both the cipl-ol-elkt and ptr-zvng-if-face time personally spent by the physician and/or other qualified health healthcare consultant(s) on the day of the encounter consisting of a total of30 minutes (F/U -level 4)including Medical Decision Making, preparing to see the patient (eg, review of tests), obtaining and/or reviewing separately obtained history, performing a medically appropriate examination and/or evaluation, counseling and educating the patient/family/caregiver,ordering medications, tests, or procedures,referring and communicating with other health reproductive healthcare assistant, documenting clinical information in the electronic or other health record, independently interpreting results (not separately reported) and communicating results to the patient/ family/caregiver, care coordination Electronic Signature on File Electronically Reviewed/Signed by: Glenda Baptiste DO Author Signature Dt/Tm:11/02/2024 03:03 PM Division of Sports Medicine [facility] Patient Care team information Care Team Personnel Name: MD Jean Pierre, Cristofer Dee Position: Physician - Orthopaedic Surg Member Role: Lifetime Relationship Address: [address] [place] [address] [place] Name: MD Garnett Amy L Position: Physician - Family Med Member Role: Primary Care Provider Address: [address] [place] [address] [place] Name: Morgan Robledo Erin Position: Pharmacist Member Role: Pharmacy - Lifetime Name: DO Alarcon Sophia Elizabeth Position: Resident Member Role: Lifetime Relationship Address: [address] [place] [address] [place] Care Team Related Persons Name: URIAH CAN
--- OUTSIDE RECORDS SUMMARY | 2024-11-30 23:12 | External Medical Summary | Continuity of Care Document ---
Author Name Unknown Organization [place] [id number] Address [address] [place] [address] [id number] Care Team Providers Care Animal Doctor Name Role Phone Madhavi Garnett Primary Care Physician [phone] [id number] Date(s): 09/13/24 - 09/13/24 [facility] [place] [id number] [facility] [address] [place] [id number] Encounter Diagnosis Lumbar radiculopathy(Discharge Diagnosis) - 09/13/24 Acute muscle weakness(Discharge Diagnosis) - 09/13/24 Discharge Disposition: Home or Self Care Attending Physician: DO Baptiste Jina Referring Physician: GISSEL Rinaldi Jessica A Allergies, Adverse Reactions, Alerts No Known Allergies [...] Daily, Disp# 90 tab, Refills: 1, Pharmacy: [facility] Start Date: 05/08/24 Status: Ordered atorvastatin 40 mg oral tablet Start: 05/08/24 8:23:00 AM EDT, 1 tab, PO, Daily, Disp# 90 tab, Refills: 1, Pharmacy: [facility] 2229 Start Date: 05/08/24 Status: Ordered buPROPion 150 mg/24 hours (XL) oral tablet, extended release Start: 08/13/24 11:41:00 AM EDT, 3 tab, PO, q24h, Disp# 270 tab, Refills: 1, Pharmacy: [facility] 2229 Start Date: 08/13/24 Stop Date: 02/09/25 Status: Ordered DULoxetine 60 mg oral delayed release capsule Start: 05/08/24 8:24:00 AM EDT, 1 cap, PO, Daily, Disp# 90 each, Refills: 1, Pharmacy: [facility] 2229 Start Date: 05/08/24 Status: Ordered famotidine 40 mg oral tablet Start: 04/19/24 11:41:00 AM EDT, 1 tab, PO, Daily, Disp# 90 tab, Refills: 3, Pharmacy: [facility] 2229 Start Date: 04/19/24 Status: Ordered fenofibrate 48 mg oral tablet Start: 05/08/24 8:25:00 AM EDT, 1 tab, PO, Daily, Disp# 90 tab, Refills: 1, Pharmacy: [facility] 2229 Start Date: 05/08/24 Status: Ordered gabapentin 100 mg oral capsule Start: 09/13/24 10:50:00 AM EST, 1 cap, PO, tid, Disp# 90 cap, Refills: 0, take 1 cap BID x 3 days then increase to 2 cap BID x 3 days then switch to 300mg dose., Pharmacy: [facility] 2229 Start Date: 09/13/24 Stop Date: 10/13/24 Status: Ordered levothyroxine 137 mcg (0.137 mg) oral tablet Start: 08/20/24 10:21:00 AM EDT, 1 tab, PO, Daily, Disp# 90 tab, Refills: 3, Note to Pharmacy: discontinue the 125 mcg, Pharmacy: [facility] 2229 Start Date: 08/20/24 Stop Date: 08/15/25 Status: Ordered Medrol Dosepak 4 mg oral tablet Start: 08/13/24 11:38:00 AM EDT, See Instructions, Disp# 21 tab, Take as directed on package labeling for 6 days., Pharmacy: [facility]229 Start Date: 08/13/24 Stop Date: 08/19/24 Status: Ordered potassium chloride 20 mEq oral tablet, extended release Start: 08/20/24 10:18:00 AM EDT, 1 tab, PO, Daily, Disp# 90 tab, Refills: 3, Pharmacy: [facility]229 Start Date: 08/20/24 Stop Date: 08/15/25 Status: Ordered Rinvoq 15 mg oral tablet, extended release Start: 06/19/24 9:03:00 AM EDT, 1 tab, PO, Daily, Disp# 30 tab, Refills: 5, Note to Pharmacy: specialty -[facility] - stopped pilar, Pharmacy: [facility], Supply Start Date: 06/19/24 Stop Date: 12/16/24 Status: Ordered Rinvoq 15 mg oral tablet, extended release Start: 06/20/24 6:23:00 PM EDT, 1 tab, PO, Daily, Disp# 30 tab, Refills: 5, Note to Pharmacy: [place],Pharmacy: [facility], Supply Start Date: 06/20/24 Stop Date: 12/17/24 Status: Ordered traMADol 50 mg oral tablet Start: 08/24/24 4:59:00 PM EDT, 1 tab, PO, q6h, Disp# 12 tab, Pharmacy: [facility] 2229 Start Date: 08/24/24 Stop Date: 08/27/24 Status: Ordered Mental Status 09/13/24 Barriers to Learning one year None evide nt Mandatory Health Literacy Documentation Yes Health Literacy Communication Barriers N ever Primary Language [place] Zealander Problem List Condition Confirmation Course Effective Dates Status Health Status Informant Charcot's joint of left foot Confirmed Active Chronic kidney disease (CKD), stage III (moderate) Confirmed Active COPD (chronic obstructive pulmonary disease) Confirmed Active Cigarette smoker Confirmed Active Gout Confirmed 06/28/16 Active Heartburn Confirmed Active Iwlfrfg-Ryzpt-Trohb syndrome Confirmed Active Hypertensive disorder Confirmed 06/28/16 [...] Clinical Service Informant Lumbar radiculopathy Discharge Diagnosis 09/13/24 Non-Specified Acute muscle weakness Discharge Diagnosis 09/13/24 Non-Specified Procedures Procedure Date Related Diagnosis Body [...] deformity with midfoot collapse and severe osteoarthritis. [address] [place] [address] Impression: 1. No acute osseous pathology. Osteoarthritis 4No DVT within the right or left upper extremity. 51. Left Charcot capsular release. 2. Mid foot tarsal osteotomy with resection of the cuboid. 3. Reduction and pinning of mid tarsal joints. 4. Application of multiplanar Ilizarov-type frame for Charcot correction. 5. Complex wound closure, 1 x 2-cm plantar defect. 6Mulitple operations at both feet Vital Signs Most recent to oldest [Reference Range]: 1 Height 165.1 cm (09/13/24 10:02 AM) Patient Weight 81.65 kg (09/13/24 10:02 AM) Body Mass Index 29.95 kg/m2 (09/13/24 10:02 AM) Social History Social History Type Response Tobacco [...] Safety Implantable Status Assigning Authority Unknown Unknown [id number] Unknown 09/20/21 Unknown Unknown Active Unknown Unknown Unknown [id number] Unknown 06/23/25 Unknown Unknown Active Unk nown [...] Safety Implantable Status Assigning Authority Unknown Unknown [id number] Unknown 06/23/22 Unknown Unknown Active Unknown Ortho Outpt Note * DO Baptiste Jina: PERFORM, MODIFY, MODIFY Event Display: Ortho Outpt Note Authored Date: [id number] Name:TYRELL CAN Patient Number:[id number] :1965 Date of Service:09/13/2024 Primary Care Provider: MD Ruba, Madhavi Medina Referred by:GISSEL Rinaldi Jessica A Initial Evaluation Chief Complaint:Zeinab Genao presents with [...] Current:tylenol Previous:oral steroid, flexeril oTherapeutic Exercise:none oInjections:none 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 Functional Status: 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 oADLs:difficultygetting dressed and doing chores around the house Previous Work-Up:_seen by PCP who trialed Medrol Dosepak and Flexeril oPrior diagnostic tests:_none Red Flags:deniesred flag symptoms offever, chills, bowel dysfunction, bladder dysfunction, saddle anesthesia, unexplained weight loss greater than 20 lbs, history of cancer _ Problems: Moderate recurrent major depression Hyperlipidemia, mixed Subclinical hypothyroidism Rheumatoid arthritis involving multiple sites Heartburn Hypertriglyceridemia Other polyosteoarthritis COPD (chronic obstructive pulmonary disease) Charcot's joint of left foot Sjogren syndrome, unspecified Drug therapy Tick bite Postop check Cigarette smoker Increased body weight Yflcyua-Ifbiv-Zsnni syndrome Sjogrens syndrome Chronic kidney disease (CKD), stage III (moderate) Inflammatory polyarthritis Gout Hypertensive disorder Plantar fasciitis Procedure History Procedure Procedure Date Comments Foot joint operations -Mulitple operations at both feet CXR - Chest X-ray 04/22/2024 -No acute cardiopulmonary findings. No change in appearance of the chest. Foot X-ray 04/22/2024 -1.Right great toe wound. No radiographic evidence of acute osteomyelitis. No radiopaque foreign bodies.2. Status post right midfoot fusion, as described above. Lucency adjacent to the 2 cannulated screws which traverse the bases of the fourth and fifth metatarsals and the calcaneocuboid articulation. This raises possibility of loosening.3. Evidence for previous lisfranc injury. Pes planus deformity with midfoot collapse and severe osteoarthritis. [facility] No acute osseous pathology. Osteoarthritis Doppler ultrasonography of bilateral upper extremity blood vessels 11/04/2020 -No DVT within the right or left upper extremity. Foot 2019 -1. Left Charcot capsular release.2. Mid foot tarsal osteotomy with resection of the cuboid.3. Reduction and pinning of mid tarsal joints.4. Application of multiplanar Ilizarov-type framefor Charcot correction.5. Complex wound closure, 1 x 2-cm plantar defect. Social History: Alcohol Details:Current, Beer, Wine, Daily, 2 drinks/episode average. 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 Exercise Risk Assessment:Does not exercise Home/Environment Details:Lives with Spouse. Living situation: Home/Independent. Nutrition/Health Details:Regular, Caffeine intake amount: Soda once weekly.. Other Details:Has not had a blood transfusion. Has a tattoo at left wrist w/ clean equipment. Has not had HIV or hepatitis C testing in the past. Sexual Details:Sexually active: No. Sexual orientation: Straight or heterosexual. Substance Abuse Risk Assessment:Denies Substance Abuse Tobacco Details:Current every day smoker, Cigarettes, Exposure to Secondhand Smoke: No. 10 per day. 40 year(s). Medication List Active Medications Ordered acetaminophen: 1 cap, PO, q6h, PRN: as needed for pain. amLODIPine: 1 tab, PO, Daily, 90 tab, 1 Refill(s). atorvastatin: 1 tab, PO, Daily, 90 tab, 1 Refill(s). buPROPion: 3 tab, PO, q24h, for 90 day, 270 tab, 1 Refill(s). DULoxetine: 1 cap, PO, Daily, 90 each, 1 Refill(s). famotidine: 1 tab, PO, Daily, 90 tab, 3 Refill(s). fenofibrate: 1 tab, PO, Daily, 90 tab, 1 Refill(s). levothyroxine: 1 tab, PO, Daily, for 90 day, 90 tab, 3 Refill(s). methylPREDNISolone: See Instructions, for 6 day, Take as directed on package labeling for 6 days., 21 tab. potassium chloride: 1 tab, PO, Daily, for 90 day, 90 tab, 3 Refill(s). traMADol: 1 tab, PO, q6h, for 3 day, 12 tab. upadacitinib: 1 tab, PO, Daily, for 30 day, 30 tab, 5 Refill(s). upadacitinib: 1 tab, PO, Daily, for 30 day, 30 tab, 5 Refill(s). Medications Inactivated in the Last 72 Hours No medications found. Allergies (1) ActiveReaction NKANone Documented Family History: Father: Heart attack; Hypertension Review of Systems: A comprehensive review of systems was negative except for pertinent items noted in HPI. Physical Examination: Vital Signs: No Vitals Over the Past 24 Hours Found General: Alert and oriented.Patient in no apparent distress. Psych: Affect normal and appropriate. HEENT: Head normocephalic and atraumatic. Neck is supple. Chest: Breathing is non-labored. Skin: There are no gross skin lesions. Gait:Antalgic with Single Point Cane. Today's physical exam was complicated by the [...] (L2), Knee Extensors (L3), 4+/5 on the, Righthowevercould be pain induced weakness and this was difficult to test due to the patient's shaking leg DTRs:2+ throughout bilateral lower limbs except for the following:, 0, Achilles (S1), on the left. Jendrassik maneuver's were were used to obtain1+ Achilles on the right. Tests for lumbar radiculopathy: Slump (for radicular symptoms):, Negative Straight Leg Raise Test (Lasgue's sign):Negative Reverse Straight Leg Raise Test (Femoral Nerve Stretch Test):Negative Phalen's sign for radicular lumbar spinal stenosis (passive extension for up to 1 minute):negative Long tract signs (UMN signs):Ankle clonus, babinski sign, negative RECENT PERTINENT STUDIES: Lumbar x-rays obtained today and reviewed by me. Radiology read pending. my impression is osteophytic changesat vertebral endplates, decreased disc space at L4-L5 and L5-S1 EMG/NCS: none ASSESSMENT: 1.RightLow BackPainradiating into right anterior thigh, groin.Symptoms are inthe setting ofrheumatoid arthritis of multiple joints, Sjogren's disease, chronic tobacco use, and history of Charcot foot bilaterally and kidney disease. LikelyLumbar Radiculopathy given radicular complaints,positive dural tensions signs, motor deficits LikelyconcomitantMyofascial Pain giventenderness to palpation PossibleDiscogenic Pain givenreproduction of pain with flexion-based maneuvers PossiblyconcomitantLumbar Facet-mediated Pain givenpain with ipsilateral oblique extension, tenderness over facet joints, facet arthropathy seen on diagnostic imaging Possible Sacroiliac Joint Pain giventenderness over PSIS/SIJ PLAN: Diagnostics: Lumbar MRI without contrastin setting of likely acute radiculopathy with acute weakness in the right leg. Injections: None at this time Pending MRI results patient could be candidate for an epidural steroid injection. _ _ _ Medications: The patient was educated about medication risks and benefits, Prescription(s) given forgabapentin 300 mgp.o. twice daily, (titrate up to300 mg from 100 mg twice dailyover6 days.) (creatinine clearance was calculated to be55) I counseled the patient and recommended that opioids were not aneffective medication for her acute back. _ Modalities: None at this time Orthotics:/DME None at this time Therapeutic exercise: Patient would likely benefit from physical therapy at this time howeverlumbar MRI needed first. Education: A lengthy discussion was held with the patient regarding their diagnosis andprognosis. We discussed workup and treatment strategies including physical therapy, pharmacologic management, injections, and surgery The patients questions were sought and answered satisfactorily. Other: Reviewed prior notes fromGISSEL Morin Jessica A Follow-up visit: Scheduled for:follow up to coincide with completion of, diagnostic testing Advised patient to seek urgent medical attention if they develop new onset progressive weakness and/or bowel/bladder dysfunction Glenda Baptiste, Sports Medicine and Interventional Spine Physical Medicine & Rehabilitation Total time on the date of the encounter which includes both the klxt-sx-ypci and ztl-ayfw-sw-face time personally spent by the physician and/or other qualified health child care centre director(s) on the day of the encounter consisting of a total of60 minutes( consultlevel 4)including Medical Decision Making, preparing to see the patient (eg, review of tests), obtaining and/or reviewing separately obtained history, performing a medically appropriate examination and/or evaluation, counseling and educating the patient/family/caregiver,ordering medications, tests, or procedures,referring and communicating with other health managed care director, documenting clinical information in the electronic or other health record, independently interpreting results (not separately reported) and communicating results to the patient/ family/caregiver, care coordination Electronic Signature on File CC: Uriah Rinaldi PA-C,MPAS [address] [place] [address] Electronically Reviewed/Signed by: Glenda Baptiste DO Author Signature Dt/Tm:09/13/2024 11:36 AM Division of Sports Medicine Electronically Reviewed/Signed by: Glenda Baptiste DO Cosigner Signature Dt/Tm: 09/13/2024 11:37 AM Division of Sports Medicine JL Patient Care team information Care Team Personnel Name: MD Jean Pierre, Cristofer Dee Position: Physician - Orthopaedic Surg Member Role: Lifetime Relationship Address: [address] [facility] [address] [place] [id number] [place] Name: MD Garnett Amy L Position: Physician - Family Med Member Role: Primary Care Provider Address: [address] [address] [place] Name: Morgan Robledo Erin Position: Pharmacist Member Role: Pharmacy - Lifetime Name: DO Alarcon Sophia Elizabeth Position: Resident Member Role: Lifetime Relationship Address: [address] [facility] [address] [place] [address] [place] Care Team Related Persons Name: URIAH CAN
--- OUTSIDE RECORDS SUMMARY | 2024-11-30 23:12 | External Medical Summary | Summary of Care ---
Author Name Unknown Organization [facility] Address [address] [place] [facility] [place] [place] [address] Phone [phone] Care Team Providers Care Business Process Modeler Name Role Phone Kelly SILVA MD, Lalo Torres Primary Care Provider [phone] Reason for Referral * Precert (Within 10 days (routine)) - Authorized Specialty Diagnoses / Procedures Referred By Elidia burnette Referred To Contact Radiology Diagnoses Radiculopathy, lumbar region Generalized weakness Procedures MRI L SPINE WO CONTRAST [facility], [place] [address] *DO NOT REMOVE THIS DEPARTMENT* [place] [address] Phone: tel: Referral ID Status Reason Start Date Expiration Date V isits Requested Visits Authorized [id number] Authorized 09/15/[phone] Encounter Details Date Type Department Care Team (Late st Contact Info) Description 09/15/2024 Orders Only Access [place], [facility] [address] *DO NOT REMOVE THIS DEPARTMENT* [place] [id number] Requisition, External Radiology [address] [place] [address] Radiculopathy, lumbar region*; Generalized weakness Allergies No known active allergiesdocumented as of this encounter (statuses as of 09/15/2024) Medications hydrochlorothiazid e (HYDRODIURIL) 25 MG TabletIndications: [...] tablet by mouth daily 30 Tablet 5 09/11/2024 2:35 PM EST 06/20/20 24 Active amLODIPine Besylate 10 [...] as of this encounter (statuses as of 09/15/2024) Active Problems Problem Noted Date Diagnosed Date Arthritis, rheumatoid 01/01/2024 Gout 01/26/2006 Hypothyroidism 12/23/2004 Encounter for other general counseling or advice on contraception 12/23/2004 Overview (07/24/2024): ICD-10 update of inactive term Varicella without complication 12/23/2004 HTN, goal below 140/90 08/18/2004 PURE HYPERCHOLESTEROLEM Overview (04/26/1999): 235 [place] 1994 Dyslipidemia, goal LDL below 130 Tobacco use disorder documented as of this encounter (statuses as of 09/15/2024) Immunizations Name Administration Dates Next Due Pneumococcal Polysaccharide PPV23 (Pneumovax) TDAP, Age 7 and older, IM (Adacel) 04/08/2010 documented as of this encounter Social History Tobacco Use Types Packs/Day Years Used Date Smoking Tobacco: Every Day Cigarettes 0.5 29 Smokeless Tobacco: Never Alcohol Use Standard Drinks/Week Comments Yes 3.3 (1 standard drin k = 0.6 oz pure alcohol) As of 2..2006, the last noted alcohol intake was 24 [...] as of this encounter Plan of Treatment Upcoming Encounters Date Type Department Care Team (Late st Contact Info) Description 10/08/2024 3:15 PM EST Imaging Radiology [facility] [address] [place] [address] Scheduled Orders Name Type Priority Associated Diagnoses Orde r Schedule MRI L SPINE WO CONTRAST Medical Imaging Routine Radiculopathy, lumbar region Generalized weakness Expected: 09/15/2024, Expires: 03/12/2025 Health Maintenance Due Date Last Done Comments COVID-19 Vaccine (#1) 1968 HIV Screening 1978 Albumin/Creatinine Ratio 1981 Hepatitis C Screening 1981 Zoster Vaccines (1 of 2) 1982 HPV/Co-Test 1993 Mammogram 2003 Cologuard 2008 Colonoscopy 2008 Colorectal Cancer Screening 2008 Fecal Occult Blood Test 2008 Sigmoidoscopy 2008 Pneumococcal Vaccine: Pediatrics (0 to 5 Years) and At-Risk Patients (6 to 64 Years) (2 of 2 - PCV) 04/08/2011 04/08/2010 [...] Not on filedocumented as of this encounter Visit Diagnoses Diagnosis Radiculopathy, lumbar region- Primary Thoracic or lumbosacral neuritis or radiculitis, unspecified Generalized weakness Other malaise and fatigue documented in this encounter Care Teams Business Process Modeler Relationship Specialty Start Date End Date Lalo Mendoza III, MD PCP - General 02/19/10 documented as of this encounter
--- OUTSIDE RECORDS SUMMARY | 2024-11-30 23:12 | External Medical Summary | Summary of Care ---
Author Name Unknown Organization [facility] Address [address] [facility] [place] [address] Phone [phone] Care Team Providers Care Icebox Man Name Role Phone Kelly SILVA MD, Lalo Torres Primary Care Provider [phone] Reason for Visit * Reason Onset Date Comments Appointment 10/05/2024 Encounter Details Date Type Department Care Team (Late st Contact Info) Description 10/05/2024 Telephone [address] [place] [address] Gisela Chan, RT (M) Appointment Allergies No known active allergiesdocumented as of this encounter (statuses as of 10/05/2024) Medications hydrochlorothiazid e (HYDRODIURIL) 25 MG TabletIndications: [...] as of this encounter (statuses as of 10/05/2024) Active Problems Problem Noted Date Diagnosed Date Arthritis, rheumatoid 01/01/2024 Gout 01/26/2006 Hypothyroidism 12/23/2004 Encounter for other general counseling or advice on contraception 12/23/2004 Overview (07/24/2024): ICD-10 update of inactive term Varicella without complication 12/23/2004 HTN, goal below 140/90 08/18/2004 PURE HYPERCHOLESTEROLEM Overview (04/26/1999): 235 [place] 1994 Dyslipidemia, goal LDL below 130 Tobacco use disorder documented as of this encounter (statuses as of 10/05/2024) Immunizations Name Administration Dates Next Due Pneumococcal [...] encounter Miscellaneous Notes * Telephone Encounter - Gisela Chan RT (M) - 10/05/2024 12:29 PM EST Name: Miranda Patten Do you have any of the following: Pacemaker, stents, heart valves, aneurysm clips? Yes Pins in feet Have you ever worked with metal or have you ever gotten metal in your eyes? No Have you had a colonoscopy in the last 30 days? No On dialysis? No Do you have any dermals or body piercing's? No or ? No Do you wear an insulin pump or diabetic monitor? No RT Nga (M) documented in this encounter Plan of Treatment Upcoming Encounters Date Type Department Care Team (Late st Contact Info) Description 10/08/2024 3:15 PM EST Imaging Radiology [address], [address] [place] [address] Health Maintenance Due Date Last Done Comments [...] filedocumented as of this encounter Care Teams Icebox Man Relationship Specialty Start Date End Date Lalo Mendoza III, MD PCP - General 02/19/10 documented as of this encounter
--- OUTSIDE RECORDS SUMMARY | 2024-11-30 23:12 | External Medical Summary | Summary of Care ---
Author Name Unknown Organization [facility] Address [address] [place] [address] Phone [phone] Care Team Providers Care Lace Weaver Name Role Phone Kelly SILVA MD, Lalo Torres Primary Care Provider [phone] Reason for Visit * Reason Onset Date Comments Imaging Records Request 10/09/2024 Encounter Details Date Type Department Care Team (Late st Contact Info) Description 10/09/2024 Telephone Radiology Film File [address] [place] [address] Support, Imaging Radiology [address] [place] [address] Imaging Records Request Allergies No known active allergiesdocumented as of this encounter (statuses as of 10/09/2024) Medications hydrochlorothiazid e (HYDRODIURIL) 25 MG TabletIndications: [...] as of this encounter (statuses as of 10/09/2024) Active Problems Problem Noted Date Diagnosed Date Arthritis, rheumatoid 01/01/2024 Gout 01/26/2006 Hypothyroidism 12/23/2004 Encounter for other general counseling or advice on contraception 12/23/2004 Overview (07/24/2024): ICD-10 update of inactive term Varicella without complication 12/23/2004 HTN, goal below 140/90 08/18/2004 PURE HYPERCHOLESTEROLEM Overview (04/26/1999): 235 [place] 1994 Dyslipidemia, goal LDL below 130 Tobacco use disorder documented as of this encounter (statuses as of 10/09/2024) Immunizations Name Administration Dates Next Due Pneumococcal Polysaccharide PPV23 (Pneumovax) TDAP, Age 7 and older, IM (Adacel) 04/08/2010 documented as of this encounter Social History Tobacco Use Types Packs/Day Years Used Date Smoking Tobacco: Every Day Cigarettes 0.5 29 Smokeless Tobacco: Never Alcohol Use Standard Drinks/Week Comments Yes 3.3 (1 standard drin k = 0.6 oz pure alcohol) As of 2.2006, the last noted alcohol intake was 24 [...] Telephone Encounter - Rosalino Roberson OSA - 10/09/2024 1:15 PM EST [facility] Sports Medicine requesting 10.08.24 MRI L spine imaging. [place] Authorization to Release on file. Images pushed to [place] PACS as this is the office's preferred method of transmission/retrieval. Associated report(s) not needed. documented in this [...] filedocumented as of this encounter Care Teams Lace Weaver Relationship Specialty Start Date End Date Lalo Mendoza III, MD PCP - General 02/19/10 documented as of this encounter
--- NOTE | 2024-11-30 23:32 | XRay Report ---
Exam(s): XR HIP + PELVIS, 2-3 views EXAM: XR Right Hip With Pelvis When Performed, 2 or 3 Views CLINICAL HISTORY: Reason for exam: right hip, lower back pain. TECHNIQUE: Two or three views of the right hip with pelvis when performed. COMPARISON: No relevant prior studies available. FINDINGS: Bones/joints: The right hip appears to be dislocated. No visualized fracture. Vasculature: Phleboliths within the pelvis. IMPRESSION: The right hip appears to be dislocated. Electronically signed by: Harrison Blank MD 11/30/24 23:31 PM
[2024-11-30] MEDS: CYCLOBENZAPRINE HCL 5 MG TAB PO SCH (23:34)
[2024-11-30] MEDS: ACETAMINOPHEN 500 MG TAB PO SCH (23:34)
[2024-11-30] MEDS: SODIUM CHLORIDE 0.9% 1,000 ML IV SCH (23:35)
[2024-11-30] MEDS: POTASSIUM CHLORIDE CRTAB 20 MEQ TABCR PO STA (23:35)
[2024-12-01] MEDS: oxyCODONE HCL IR 5 MG TAB (IMMEDIATE RELEASE) PO PRN (00:59)
--- NOTE | 2024-12-01 03:12 | CT Scan Report ---
EXAM: CT hip RT wo con CLINICAL HISTORY: ?dislocation noted on X-ray TECHNIQUE: Contiguous axial CT images of right hip were obtained without intravenous contrast. Coronal and sagittal reconstructions were likewise performed and indicated to increase the sensitivity for detecting clinically relevant pathology. CT scan was performed according to ALARA (as low as reasonably achievable). COMPARISON: None. FINDINGS: Altered marrow density (mixed sclerotic and lytic) is noted involving the right femoral head, neck and the acetabulum. Multiple erosions are noted involving the femoral head and acetabulum. Significant asymmetric joint space reduction is noted. Flattening of the femoral head is noted, suggestive of subchondral collapse. Suspicious mild subchondral fracture is also noted. Mild to moderate joint effusion is noted. Heterotropic calcifications are noted in the periarticular soft tissue. Multiple small bone fragments are noted within the joint cavity. Suspicious capsular thickening with calcifications is noted involving the right hip joint capsule, possibility of capsulitis with synovitis. Moderate fatty atrophy of the gluteus minimus muscle is noted. Possibility of underlying septic arthritis needs consideration. Cytological correlation is suggested for confirmation. Suspicious mild collection is noted in the right iliopsoas bursa, possible bursitis. Rest of the visualized bones and soft tissues appear grossly unremarkable. IMPRESSION: 1. Altered marrow density (mixed sclerotic and lytic) is noted involving the right femoral head, neck and the acetabulum. Multiple erosions are noted involving the femoral head and acetabulum. 2. Significant asymmetric joint space reduction is noted. Flattening of the femoral head is noted, suggestive of subchondral collapse. Suspicious mild subchondral fracture is also noted. 3. Mild to moderate joint effusion is noted. 4. Heterotropic calcifications are noted in the periarticular soft tissue. 5. Multiple small bone fragments are noted within the joint cavity. 6. Suspicious capsular thickening with calcifications is noted involving the right hip joint capsule, possibility of capsulitis with synovitis (possibly chronic). Possibility of underlying septic arthritis needs consideration. Cytological correlation is suggested for confirmation. 7. Moderate fatty atrophy of the gluteus minimus muscle is noted. 8. Suspicious mild collection is noted in the right iliopsoas bursa, possible bursitis. Electronically signed by Riaz Quinones 12-01-2024 03:11 AM
[2024-12-01] MEDS ORDERED: NALOXONE HCL 0.4 MG/1 ML VIAL/CARP IV PRN (03:25)
[2024-12-01 06:34] LABS: Basophils # (auto) 0.01 K/uL (0.00-0.20); Basophils % (auto) 0.1 %; Eosinophils # (auto) 0.03 K/uL (0.00-0.50); Eosinophils % (auto) 0.4 %; Hematocrit (blood only) 31.6 % (37.0-47.0); Hemoglobin 10.8 g/dl (12.0-16.0); Immature Granulocytes # (auto) 0.12 K/uL (0.01-0.20); Immature Granulocytes % (auto) 1.6 %; Lymphocytes % (auto) 11.9 %; Mean Corpuscular Hemoglobin 31.7 pg (25.0-34.0); Mean Corpuscular Hgb Conc 34.2 g/dL (32.0-36.0); Mean Corpuscular Volume 92.7 fL (80.0-100.0); Mean Platelet Volume 10.5 fL (9.4-12.4); Monocytes # (auto) 0.72 K/uL (0.11-0.59); Monocytes % (auto) 9.5 %; Neutrophils # (auto) 5.81 K/uL (1.40-6.50); Neutrophils % (auto) 76.5 %; Platelet Count 243 K/uL (130-400); RDW Coefficient of Variation 12.9 % (11.5-14.5); RDW Standard Deviation 44.1 fL (36.4-46.3); Red Blood Count 3.41 M/uL (4.20-5.40); White Blood Count 7.59 K/ul (4.8-10.8)
[2024-12-01] MEDS: LEVOTHYROXINE SODIUM 137 MCG TABLET PO SCH (06:45)
[2024-12-01 07:00] LABS: BUN Creatinine Ratio 18.1 (10-20); C Reactive Protein 19.31 mg/dl (0-0.5); Creatinine Clr Calc Pharmacy 54.7 ml/min; Potassium 3.8 mmol/L (3.5-5.1)
--- NOTE | 2024-12-01 08:01 | Hospitalist Progress Note ---
Date of Service December 01, 2024 Assessment & Plan (1) Acute hip pain: Plan: X-ray imaging suggestive of right hip dislocation. Patient is NV intact. No recent falls or trauma. Most likely cause of patient's severe acute pain -Check CT -Pain control -Ortho consultation (2) Intractable back pain: Plan: -Tylenol 1gm po TID scheduled -Heat -Oxycodone 5mg po q 4 hours PRN -Morphine 4mg IV q 3 hours PRN severe pain -Flexeril 5mg po TID PRN -Gabapentin 600 mg po BID -Lyrica 75mg po BID Plan Chronic Medical Issues: Hypertension -Continue Amlodipine 10mg po daily Hyperlipidemia -Continue Atorvastatin 40mg po daily -Continue Fenofibrate Anxiety -Welbutrin 150mg po BID Hypothyroidism -Continue Synthroid 137mcg po daily F/E/N - NSS at 125mL/hr, electrolytes WNL, NPO for now for possible reduction of hip dislocation Ppx - SCDs Code - Full Dispo - Admit to medical Admission and Anticipated Discharge Date Admission Date: November 30, 2024 Supervising Physician Co-Signing Physician Notes Attending attestation Pt seen and examined in concert with Dr. Romero. In agreement with the documented findings as noted in the resident documentation with any exceptions or additions as noted here. Laying in bed, pain adquately controlled on present regimen at time of examination. Reports no paresthesias, weakness, migratory pain, urinary symptoms. On examination, S1/S2 nl RRR no MCG. CTAB. Abd NT/ND BS+ve. Distal LE bilaterally NVI CT hip, XR hip Intractible hip and back pain, acute - ortho consult - imaging concerning for septic arthritis vs. complicated hip vs. charcot hip. Agree w/ recommendation for transfer to [facility] [place]. Continue pain control regimen w/ morphine and supportive care chepe surrounding movement/transfer. Continue chronic pain regimen as noted. Else see resident documentation as noted. Total attending physician time spent with this patient's care on the day of transfer: 40 minutes. Subjective Miranda was seen and evaluated at bedside, appearing in mild distress. Endorses severe R hip pain worsening over the last 1-2 weeks, denies injury or trauma. Notes she can no longer bear weight on R hip, Physical Exam Physical Exam: General: patient resting comfortably, NAD, non-toxic in appearance, AA&O x 4 Skin: warm, dry, intact, no rashes or lesions HEENT: NC/AT, PERRL, EOMI, anicteric sclera, conjunctiva without injection, external ear normal to inspection and nontender, nares patent, moist mucus membranes, dentition intact, no oropharyngeal lesions, neck supple, trachea midline, no LAD, no thyromegaly, no JVD Heart: +S1/S2, regular, no m/r/g Lungs: equal air entry bilaterally, no rales/rhonchi/wheezes Abd: +BS, soft, NT/ND, no masses/organomegaly/ascites Ext: warm, 2+ pulses in UE/LE bilaterally, no clubbing/cyanosis or edema Pain in the right buttock, some paraspinal muscular tenderness, + straight leg raise Neuro: nonfocal, patient AA&O x 4, speech intact, no facial droop, moving all extremities on command with equal strength 5/5 Results & Data Results & Data Vital Signs (Past 12 Hours) Vital Signs Temp Pulse Pulse Resp BP BP Pulse Ox 12/01/24 07:12 36.7 C 79 18 150/75 H 92 12/01/24 05:32 36.7 C 77 16 160/56 H 95 11/30/24 22:40 36.7 C 80 16 156/85 H 91 11/30/24 22:37 36.7 C 80 16 156/88 H 91 11/30/24 21:53 78 17 158/86 H 98 11/30/24 21:00 78 17 150/96 H 95 11/30/24 20:06 83 20 165/88 H 96 O2 Del Method O2 Flow Rate 12/01/24 07:12 Nasal Cannula 2 12/01/24 05:32 Nasal Cannula 2 11/30/24 22:40 Room Air 11/30/24 22:37 Room Air 11/30/24 21:53 Nasal Cannula 2 11/30/24 21:00 Room Air 11/30/24 20:06 Room Air (1) Acute hip pain Laterality: right Qualified Code(s): M25.551 - Pain in right hip
[2024-12-01] MEDS: GABAPENTIN 600 MG TAB PO SCH (08:03)
[2024-12-01] MEDS: amLODIPine BESYLATE 5 MG TAB PO SCH (08:03)
[2024-12-01] MEDS: buPROPion XL 150 MG TABCR PO SCH (08:03)
[2024-12-01] MEDS: ATORVASTATIN 40 MG TAB PO SCH (08:03)
[2024-12-01] MEDS: FENOFIBRATE NANOCRYSTALLIZED 48 MG TABLET PO SCH (08:04)
[2024-12-01] MEDS: PREGABALIN 75 MG CAP PO SCH (08:08)
[2024-12-01] MEDS ORDERED: predniSONE 20 MG TAB PO SCH (09:00)
--- NOTE | 2024-12-01 09:12 | Orthopedic Consultation ---
Date of Consultation December 01, 2024 Assessment & Plan (1) Acute hip pain: Right hip pain, with severe changes concerning for Charcot arthropathy vs severe OA vs lumbar etiology vs infection. Elevated ESR & CRP from chronically elevated values. Patient has a history of Charcot foot. Protected WB RLE with walker Pain control PT/OT Will need referral to [facility], recommend tertiary care center. In mean time Interventional Radiology referral for aspiration. Would hold antibiotics until aspiration obtained. Discussed with patient and hospitalist service that symptoms likely related to both her back and hip, would recommend transfer to [place] for her back with Dr. Oviedo and evaluation of her hip by the Joints service. Continue care per primary service. Present on Admission?: Yes History of Present Illness Reason for Consultation: R hip pain Requesting Physician: Adeline Patel MD Attending Physician: Nas Ibarra MD History of Present Illness Miranda is a pleasant 58 yo female with PMHx CKD, Charcot foot, HTN, Hypot hyroidism, elevated cholesterol presented to the ED with intractable back and right hip pain inability to bare weight without any injury or fall. Her pain has worsened over the last week, and is unable to bare weight. She has back pain that radiates down her buttock to lower leg to her foot. I was consulted as there was radiographic concern for right hip dislocation. She has chronic low back pain and is a patient of Dr. Oviedo in [place], with apparent plan for surgery in December. She does not feel she can wait that long. Allergies Allergy/AdvReac Type Severity Reaction Status Date / Time No Known Allergies Allergy Verified 06/26/22 19:32 Home Medications Medication Instructions Recorded Confirmed Type atorvastatin 40 mg tablet 40 mg PO QAM 07/13/19 12/01/24 History bupropion HCl 150 mg 24 hr tablet, 150 mg PO BID 07/13/19 12/01/24 History extended release (Wellbutrin XL) duloxetine 60 mg capsule,delayed 60 mg PO QAM #30 caps 07/13/19 12/01/24 History release fenofibrate nanocrystallized 48 mg 48 mg PO QAM 07/13/19 12/01/24 History tablet acetaminophen 500 mg tablet 1,000 mg PO Q6H PRN Pain 12/24/19 12/01/24 History (Tylenol Extra Strength) amlodipine 10 mg tablet 10 mg PO DAILY 06/26/22 12/01/24 History famotidine 40 mg tablet 40 mg PO DAILY 06/26/22 04/25/24 History levothyroxine 125 mcg tablet 137 mcg PO DAILY 06/26/22 12/01/24 History (Euthyrox) baclofen 5 mg tablet 10 mg PO BID PRN Pain 12/01/24 12/01/24 History baclofen 5 mg tablet mg 12/01/24 History gabapentin 600 mg tablet 600 mg PO BID 12/01/24 12/01/24 History potassium chloride 20 mEq 20 meq PO DAILY 12/01/24 12/01/24 History tablet,extended release(part/cryst) pregabalin 75 mg capsule 75 mg PO BID 12/01/24 12/01/24 History upadacitinib 15 mg tablet,extended 15 mg PO 12/01/24 History release 24 hr (Rinvoq) Patient History Medical History Deep vein thrombosis, upper right extremity PICC line History of Clostridium difficile infection HX CDIFF , 1 MON AGO - RESOLVED Low blood potassium Low magnesium level Surgical History History of foot surgery LEFT History of laparoscopy Family History Other No significant family history Social History Smoking Status: Former smoker Tobacco Type: Cigarettes Cigarettes Per Day: .5 PPD / ADVISED NPO; Second Hand Exposure: No; Do You Dip or Chew Tobacco: No; Tobacco Cessation Education Requested by Patient: No Hx Alcohol Use: Yes Alcohol type: beer Hx Substance Use: No Preferred Language: Chinese Communication Ability: Effective Online Merchandiser Required: No Beliefs That Will Affect Care: None Current Living Situation: Other Current Living Situation Comment: lives with the son Other Information That Helps Us Care for You: No Feels Safe at Home: Yes Safety Concerns: Feels Safe At This Time Assistive Devices: Walker and Wheelchair Review of Systems Review of Systems: Denies fevers or chills Physical Exam Physical Exam: RLE: Decreased sensation to light touch, unchanged. Able to wiggle toes and ankle. Pain any attempted ROM of the hip. Hip held in a flexed position, while laying in bed. Results & Data Vital Signs (Past 12 Hours) Vital Signs Temp Pulse Pulse Resp BP BP Pulse Ox 12/01/24 07:12 36.7 C 79 18 150/75 H 92 12/01/24 05:32 36.7 C 77 16 160/56 H 95 11/30/24 22:40 36.7 C 80 16 156/85 H 91 11/30/24 22:37 36.7 C 80 16 156/88 H 91 11/30/24 21:53 78 17 158/86 H 98 O2 Del Method O2 Flow Rate 12/01/24 07:12 Nasal Cannula 2 12/01/24 05:32 Nasal Cannula 2 11/30/24 22:40 Room Air 11/30/24 22:37 Room Air 11/30/24 21:53 Nasal Cannula 2 Laboratory Results Laboratory Results WBC 7.59 K/ul (4.8-10.8) 12/01/24 06:08 RBC 3.41 M/uL (4.20-5.40) L 12/01/24 06:08 Hgb 10.8 g/dl (12.0-16.0) L 12/01/24 06:08 Hct 31.6 % (37.0-47.0) L 12/01/24 06:08 MCV 92.7 fL (80.0-100.0) 12/01/24 06:08 MCH 31.7 pg (25.0-34.0) 12/01/24 06:08 MCHC 34.2 g/dL (32.0-36.0) 12/01/24 06:08 RDW Std Deviation 44.1 fL (36.4-46.3) 12/01/24 06:08 RDW Coeff of Mario 12.9 % (11.5-14.5) 12/01/24 06:08 Plt Count 243 K/uL (130-400) 12/01/24 06:08 MPV 10.5 fL (9.4-12.4) 12/01/24 06:08 Immature Gran % (Auto) 1.6 % 12/01/24 06:08 Neut % (Auto) 76.5 % 12/01/24 06:08 Lymph % (Auto) 11.9 % 12/01/24 06:08 Hartley % (Auto) 9.5 % 12/01/24 06:08 Eos % (Auto) 0.4 % 12/01/24 06:08 Baso % (Auto) 0.1 % 12/01/24 06:08 Neut # (Auto) 5.81 K/uL (1.40-6.50) 12/01/24 06:08 Lymph # (Auto) 0.90 K/uL (1.20-3.40) L 12/01/24 06:08 Hartley # (Auto) 0.72 K/uL (0.11-0.59) H 12/01/24 06:08 Eos # (Auto) 0.03 K/uL (0.00-0.50) 12/01/24 06:08 Baso # (Auto) 0.01 K/uL (0.00-0.20) 12/01/24 06:08 Immature Gran # (Auto) 0.12 K/uL (0.01-0.20) 12/01/24 06:08 Sodium 140 mmol/L (136-145) 12/01/24 06:08 Potassium 3.8 mmol/L (3.5-5.1) 12/01/24 06:08 Chloride 107 mmol/L (98-107) 12/01/24 06:08 Carbon Dioxide 23 mmol/L (21-32) 12/01/24 06:08 Anion Gap 10 (3-11) 12/01/24 06:08 BUN 21 mg/dl (6-23) 12/01/24 06:08 Creatinine 1.16 mg/dl (0.6-1.2) D 12/01/24 06:08 Est Cr Clr Drug Dosing 54.7 ml/min 12/01/24 06:08 eGFR 53.97 12/01/24 06:08 BUN/Creatinine Ratio 18.1 (10-20) 12/01/24 06:08 Glucose 99 mg/dl (70-99(Fasting)) 12/01/24 06:08 Calcium 10.0 mg/dl (8.6-10.3) 12/01/24 06:08 Total Bilirubin 0.5 mg/dl (0.2-1.0) 11/30/24 20:30 AST 18 U/L (13-39) 11/30/24 20:30 ALT 13 U/L (7-52) 11/30/24 20:30 Alkaline Phosphatase 71 U/L (34-104) 11/30/24 20:30 C-Reactive Protein 19.31 mg/dl (0-0.5) H 12/01/24 06:08 Total Protein 8.6 gm/dl (6.0-8.3) H 11/30/24 20:30 Albumin 4.6 gm/dl (3.4-5.0) 11/30/24 20:30 Globulin 4.0 gm/dl (2.5-4.0) 11/30/24 20:30 Albumin/Globulin Ratio 1.1 (0.9-2) 11/30/24 20:[address] 11/30/24 16:51 INDICATION: Low back pain with radiculopathy. COMPARISON: Correlation with MRI from 10/08/2024. TECHNIQUE: Axial CT images of the lumbar spine were obtained without IV contrast administration. Coronal and sagittal reformations were reviewed. FINDINGS: Lumbar vertebral body heights and alignment are maintained. No acute fracture or traumatic subluxation. Multilevel disc space narrowing and facet arthropathy most pronounced at lower lumbar levels. Multilevel degenerative changes essentially unchanged from prior MRI. Soft tissues appear unremarkable. IMPRESSION: No acute fracture. Multilevel disc space narrowing and facet arthropathy most pronounced at lower lumbar levels. Multilevel degenerative changes essentially unchanged from prior MRI. Electronically signed by Jerry Morgan 11-30-2024 5:54 PM Hip/Pelvis X-Ray 11/30/24 20:00 Exam(s): XR HIP + PELVIS, 2-3 views EXAM: XR Right Hip With Pelvis When Performed, 2 or 3 Views CLINICAL HISTORY: Reason for exam: right hip, lower back pain. TECHNIQUE: Two or three views of the right hip with pelvis when performed. COMPARISON: No relevant prior studies available. FINDINGS: Bones/joints: The right hip appears to be dislocated. No visualized fracture. Vasculature: Phleboliths within the pelvis. IMPRESSION: The right hip appears to be dislocated. Electronically signed by: Harrison Blank MD 11/30/24 23:[address] 12/01/24 00:52 EXAM: CT hip RT wo con CLINICAL HISTORY: ?dislocation noted on X-ray TECHNIQUE: Contiguous axial CT images of right hip were obtained without intravenous contrast. Coronal and sagittal reconstructions were likewise performed and indicated to increase the sensitivity for detecting clinically relevant pathology. CT scan was performed according to ALARA (as low as reasonably achievable). COMPARISON: None. FINDINGS: Altered marrow density (mixed sclerotic and lytic) is noted involving the right femoral head, neck and the acetabulum. Multiple erosions are noted involving the femoral head and acetabulum. Significant asymmetric joint space reduction is noted. Flattening of the femoral head is noted, suggestive of subchondral collapse. Suspicious mild subchondral fracture is also noted. Mild to moderate joint effusion is noted. Heterotropic calcifications are noted in the periarticular soft tissue. Multiple small bone fragments are noted within the joint cavity. Suspicious capsular thickening with calcifications is noted involving the right hip joint capsule, possibility of capsulitis with synovitis. Moderate fatty atrophy of the gluteus minimus muscle is noted. Possibility of underlying septic arthritis needs consideration. Cytological correlation is suggested for confirmation. Suspicious mild collection is noted in the right iliopsoas bursa, possible bursitis. Rest of the visualized bones and soft tissues appear grossly unremarkable. IMPRESSION: 1. Altered marrow density (mixed sclerotic and lytic) is noted involving the right femoral head, neck and the acetabulum. Multiple erosions are noted involving the femoral head and acetabulum. 2. Significant asymmetric joint space reduction is noted. Flattening of the femoral head is noted, suggestive of subchondral collapse. Suspicious mild subchondral fracture is also noted. 3. Mild to moderate joint effusion is noted. 4. Heterotropic calcifications are noted in the periarticular soft tissue. 5. Multiple small bone fragments are noted within the joint cavity. 6. Suspicious capsular thickening with calcifications is noted involving the right hip joint capsule, possibility of capsulitis with synovitis (possibly chronic). Possibility of underlying septic arthritis needs consideration. Cytological correlation is suggested for confirmation. 7. Moderate fatty atrophy of the gluteus minimus muscle is noted. 8. Suspicious mild collection is noted in the right iliopsoas bursa, possible bursitis. Electronically signed by Riaz Quinones 12-01-2024 03:11 AM (1) Acute hip pain Laterality: right Qualified Code(s): M25.551 - Pain in right hip
[2024-12-01] MEDS: MoRPHine SULFATE 4 MG/ML 1 ML CARP\\VIAL IV PRN (12:04)
[2024-12-01 14:44] VITALS: TEMP 98.2
--- NOTE | 2024-12-01 15:21 | Discharge Summary ---
Date of Service December 01, 2024 Admission HPI Per Admitting Provider Miranda Patten is a 58yo female presenting with acute on chronic low back pain with right sided radicular symptoms. Patient reports she has been unable to control her pain at home and has not been able to walk. She has chronic back pain. Is being considered for surgical intervention. She recently had an MRI performed at [facility] (currently attempting to obtain results). Patient has been having worsening right sided back pain for the last 2 weeks with radiation into the buttock and down posterior leg. She has not been able to ambulate at home due to discomfort. She has been taking Tylenol, Ibuprofen and Gabapentin with no relief. She has been experiencing spasms as well in her upper leg. Denies muscle weakness or numbness. No falls or trauma. No report of fever, chills, chest pain, cough, SOB, bowel or bladder issues. No additional complaints at this time. ER Course: Oxycodone Morphine Zofran Senna/Docusate Admission Exam Per Admitting Provider General: patient resting comfortably, NAD, non-toxic in appearance, AA&O x 4 Skin: warm, dry, intact, no rashes or lesions HEENT: NC/AT, PERRL, EOMI, anicteric sclera, conjunctiva without injection, external ear normal to inspection and nontender, nares patent, moist mucus membranes, dentition intact, no oropharyngeal lesions, neck supple, trachea midline, no LAD, no thyromegaly, no JVD Heart: +S1/S2, regular, no m/r/g Lungs: equal air entry bilaterally, no rales/rhonchi/wheezes Abd: +BS, soft, NT/ND, no masses/organomegaly/ascites Ext: warm, 2+ pulses in UE/LE bilaterally, no clubbing/cyanosis or edema Pain in the right buttock, some paraspinal muscular tenderness, + straight leg raise Neuro: nonfocal, patient AA&O x 4, speech intact, no facial droop, moving all extremities on command with equal strength 5/5 Principal Diagnosis intractable R hip pain, intractable back pain Discharge Exam General: A&Ox3, patient resting in mild distress, nontoxic in appearance HEENT: NC/AT, PERRL, EOM intact, anicteric sclerae CV: RRR, +s1/s2, no m/r/g heard on auscultation; 2+ carotid pulses, 2+ radial pulses, 2+ post tib pulses Resp: clear to auscultation b/l, no rales/rhonchi/wheezes GI/Abd: +BS, soft, NT/ND, no masses/organomegaly/ascites Ext: severe tenderness to palpation of R hip region and R buttock, did not tolerate any movement of RLE due to pain so did not test ROM; b/l feet with charcot deformities, no significant pitting edema Neuro: speech intact, no facial droop, sensation intact but lessened at distal LE Skin: warm, dry, intact, no rashes or lesions Discharge Data Allergies Allergy/AdvReac Type Severity Reaction Status Date / Time No Known Allergies Allergy Verified 06/26/22 19:32 Consultations 11/30/24 20:59 ED Decision to Admit Stat 12/01/24 01:18 Consult Orthopedic Surgery Routine Ordered Studies 11/30/24 16:51 CT lumbar spine wo con Stat 12/01/24 00:52 CT hip RT wo con Urgent Hospital Course (1) Acute hip pain: CT R hip on 12/01/24: sclerotic and lytic lesions in the femoral head, neck, and acetabulum; asymmetric joint space narrowing, flattening of femoral head -Pain control with morphine 4mg q3,and oxycodone q4, unable to bear weight, uses wheelchair at home -Ortho consulted: Dr. Patel does not feel comfortable keeping this patient as he feels R hip must be aspirated for septic joint r/o As we don't have IR at [facility], we will transfer to [place] for those services Will be transferring to medicine team of Dr. Sigifredo Francis at [facility], likely will have consults of IR and orthopedics (2) Intractable back pain: Continue hospital pain control with morphine and oxycodone, otherwise continue home pain management regimen Plan Chronic Medical Issues: Hypertension -Continue Amlodipine 10mg po daily Hyperlipidemia -Continue Atorvastatin 40mg po daily -Continue Fenofibrate Anxiety -Welbutrin 150mg po BID Hypothyroidism -Continue Synthroid 137mcg po daily F/E/N - NSS at 125mL/hr, electrolytes WNL, NPO for now for possible reduction of hip dislocation Ppx - SCDs Code - Full Dispo - Admit to medical Total Time Total Time Spent Total Time Spent (In Minutes): 30 Discharge Plan Discharge Items Patient Disposition: Transfer Acute Care Hospital Reason For Visit: BACK PAIN Discharge Diagnosis: intractable R hip pain Activity: Per Instructions section Non-emergency contact: Primary Care Provider Call non-emergency contact if: your symptoms worsen and your pain is not controlled Follow-up/Referrals: Madhavi Garnett MD [Primary Care Provider] - Diet: Heart Healthy Addtl Attending Provider Instructions: You were evaluated and treated initially at [facility] for intractable back and R hip pain. Upon CT scan of your R hip, there appear to be sclerotic and lytic lesions in the femoral head, neck, and acetabulum, asymmetric joint space narrowing, flattening of femoral head- these findings may be indicative of a septic joint, which for diagnosis must be aspirated with a needle. This procedure requires an interventional radiologist, which unfortunately [facility] does not have. Additionally, our orthopedic surgeon at [facility] does not feel comfortable operating on your R hip due to the above concerns, so we have discussed your care with the Medicine, Orthopedic Surgery, and IR teams at [facility], and they are happy to accept you into their care. You have been receiving morphine 4mg every 3 hours as needed for severe pain and oxycodone every 4 hours for less severe pain, as well as IV fluids in addition to your necessary home medications. We plan to give you a shot of morphine right before you are transferred so that you have good pain control during the physical transfer process. You will go to [facility] via BLS ambulance, but before you leave we will ensure you are at least adequately pain-controlled for the drive. Dr. Sigifredo Francis will be the accepting internal medicine physician at [facility]- you will be on his care team and with expected consultations to IR and orthopedic surgery. Pending Studies at Discharge: No Stand-Alone Forms: My [facility] Skilled Items Patient informed of condition?: Yes DNR: No Discharge Level of Care: Other Communicable Disease: No Discharge Prognosis: Stable Lines: Peripheral IV Urinary Catheter: No Medications and DC Order Prescriptions: Continued atorvastatin 40 mg tablet 40 mg PO QAM duloxetine 60 mg capsule,delayed release(DR/EC) 60 mg PO QAM Qty: 30 fenofibrate nanocrystallized 48 mg tablet 48 mg PO QAM bupropion HCl [Wellbutrin XL] 150 mg tablet extended release 24 hr 150 mg PO BID acetaminophen [Tylenol Extra Strength] 500 mg Tablet 1,000 mg PO Q6H PRN (Reason: Pain) famotidine 40 mg tablet 40 mg PO DAILY amlodipine 10 mg tablet 10 mg PO DAILY levothyroxine [Euthyrox] 125 mcg tablet 137 mcg PO DAILY gabapentin 600 mg tablet 600 mg PO BID potassium chloride 20 mEq tablet,ER particles/crystals 20 meq PO DAILY pregabalin 75 mg capsule 75 mg PO BID baclofen 5 mg tablet 10 mg PO BID PRN (Reason: Pain) baclofen 5 mg tablet Rinvoq 15 mg tablet extended release 24 hr 15 mg PO Discharge Orders: Discharge Order (Routine); Ordered 12/01/24 Ordered By: Lalo Poon/Other Patient Handouts: Septic Arthritis Ch Admission Data Admit Date/Time: 11/30/24 21:12 Attending Provider: Nas Ibarra Admit Provider: Leonor Chaves Primary Care Provider: Madhavi Garnett Other Providers: Star Patel; Leonor Chaves Other Interventions: Discharge Summary Assessment (RN) Last Done: 12/01/24 15:23 Resident Activity Tracking Resident Involvement: Resident Care Provided Care Provided: Adult Hospital Medicine
[2024-12-01 16:14] VITALS: BP 178/81; PULSE 90; RESP 20; O2SAT 92
[2024-12-01] MEDS: MoRPHine SULFATE 4 MG/ML 1 ML CARP\\VIAL IV STA (17:35)
== END 2024-12-01 17:53 | disposition short-term general hospital (02) ==
LOC: ED 16:02 → 3N 16:02 → SUATTDRO 21:12 → 3N 21:53